=== PATIENT | male | born 1970 | race Caucasian/White ===

== ENCOUNTER → 2020-10-10 11:05 | Outpatient (BNVA) | payer OTHER, SELFPAY | PROVIDERS: Family Provider Nurse Practitioner Family; PCP Nurse Practitioner Family; Visit Provider Nurse Practitioner Family | DX: Z20.828 Contact with and (suspected) exposure to other viral communicable diseases (principal) | CPT/HCPCS: 87635 ==

== ENCOUNTER 2021-01-22 12:45 | Observation (INO) | payer OTHER, SELFPAY ==
[2021-01-22] VITALS (28 sets, daily range): BP systolic 81–136; BP diastolic 60–84; PULSE 70–94; RESP 16–26; TEMP 36.9; O2SAT 89–96
--- NOTE | 2021-01-22 11:25 | XACV_ITS ---
Ht: 188 cm Wt: 120 kg BSA: 2.54 m2 Gender: Male : 1970 Any Known Allergies: No known allergies Exam Priority: Routine Procedure(s): Procedure Description: Diagnostic procedure Procedure Description: Coronary Angiography Diagnostic Cath Status: Urgent Diagnostic Findings * LM has 0% stenosis. * LAD has 0% stenosis. * CX has 0% stenosis. * First Obtuse Marginal Branch Segment: Severe 100% stenosis, LAURENCE: 0 flow. * First Obtuse Marginal Branch Segment: Severe 100% stenosis, LAURENCE: 0 flow. * Proximal Right Coronary Artery: Severe 80% stenosis, LAURENCE: 3 flow. * dRCA: Moderate 50% stenosis, LAURENCE: 3 flow. * Coronary angiography shows right dominance. PCI Status: Urgent Interventional Findings * First Obtuse Marginal Branch Segment: 100% stenosis treated with MDT R SEBASTIEN 2.25X12 CODY. 0% residual stenosis, LAURENCE: 3 flow. * First Obtuse Marginal Branch Segment: 100% stenosis treated with AB MINI TREK 2.00X20 RX BALLOON and MDT R SEBASTIEN 2.25X26 CODY. 0% residual stenosis, LAURENCE: 3 flow. * Proximal Right Coronary Artery: 80% stenosis treated with MDT R SEBASTIEN 3.0X12 CODY and MDT NC EUPHORA RX [id number] BALLOON. 0% residual stenosis, LAURENCE: 3 flow. Conclusions 1. 50-year-old male presented with ST elevation OK showing inferolateral changes. He was immediately taken to the Studio Sales Associate he was noted to have incidental finding of proximal 80% RCA lesion which was treated with single drug-eluting stent postdilated with noncompliant balloon. Obtuse marginal 2 was the culprit vessel which is highly calcified and 100% occluded. After somewhat difficulty we were able to cross it. It was treated with 2 overlapping drug-eluting stents. Excellent angiographic result with LAURENCE-3 flow was achieved. Patient tolerated procedure well and transferred to [facility].. 2. There is severe coronary artery disease with one vessel disease. 3. First Obtuse Marginal Branch Segment was treated with Drug Eluting Stent. 4. First Obtuse Marginal Branch Segment was treated with Balloon and Drug Eluting Stent. 5. Proximal Right Coronary Artery was treated with Drug Eluting Stent and Balloon. Recommendations * 1-Return to inpatient for close monitoring and routine cath care 2-Risk factor modification for secondary prevention 3-Statin with LDL goal <70 mg/dl, aspirin 81 mg life-long 4-Patient was pre-loaded with 180mg of Brillinta. Continue Brillinta 90mg p.o. twice daily for at least one year. We will assess at the end of one year again to continue it further or not 5-Continue optimal medical management 6-Follow up with Dr. Chong in four weeks and with your PCP in one week. Diagnostic RX Recommendation: PCI w/o planned CABG Pressures Phase:Rest AO : 209 / 128 ( 132 ) @ 6:35:00 AM 124 / 104 ( 115 ) @ 6:40:00 AM 123 / 93 ( 107 ) @ 6:54:00 AM 115 / 80 ( 96 ) @ 7:10:00 AM / ( -27 ) @ 7:27:00 AM Clinical Evaluation EBL: 5mL-10mL Procedural Details Pre-Procedure Time Out. Identified patient by full name and date of as verbalized by the patient/guarantor. Does the consent match the physician's order: N/A Emergent; Informed Consent not obtained due to time critical life threat. Accurate & Complete Informed Consent: N/A Emergent; Informed Consent not obtained due to time critical life threat. Inpatient/Outpatient History & Physical on Chart: N/A Emergent; Informed Consent not obtained due to time critical life threat. If H&P is completed, is and addenduem needed: N/A Emergent; Informed Consent not obtained due to time critical life threat; If yes, is the addendum complete: N/A Emergent; Informed Consent not obtained due to time critical life threat. Visualize and Verify Site with Patient/Guarantor: N/A. Relevant Radiology Images available: N/A Emergent; Informed Consent not obtained due to time critical life threat. Pre-op teaching completed and patient verbalized understanding. The risks, benefits, and alternatives of sedation and/or procedure were discussed by physician. The patient agrees to continue. Procedure started. Correct patient, site and procedure confirmed by cath team. Current diagnosis: STEMI. PERRLA. Strong, equal hand investigation division captain bilaterally. Lungs clear x 5 lobes. IV Site on Arrival: 18 gauge in the right anticubital. Pre Procedural Pulses: bilateral dorsalis pedis was 2+. Pre Procedural Pulses: bilateral posterior tibial was 2+. Pre Procedural Pulses: bilateral radial was 2+. AP pads placed on patient. Oxygen started at 2liters/min via nasal canula. bilateral groins was prepped with chloroprep then draped in the usual sterile fashion. right radial was prepped with chloroprep then draped in the usual sterile fashion. Baseline sample Acquired. HR: 91 BPM. Equipment: 6F - Radial. Kiwi Manifold Kit Model BT 2000. Cardiac Cath Pack. Heparinized Saline (2 units/mL), 1000 mL bag. Physician scrubbed in. Immediate Pre-Procedure Time Out. Correct Patient: Yes; Correct Procedure: Yes; Correct Site: Yes; Correct Patient Position: Yes; Correct Supplies: Yes; Dried Flammable Prep: Yes; Blood Products Available: No;. Lidocaine 1% infiltrated to the right radial. Arterial access obtained. 6 botswanan JL 4 SH guide catheter was inserted over the wire. Multiple views taken of right coronary artery. Citra guidewire was advanced through the guide catheter to lesion in the prox RCA. Patient received the following at [facility]: 4000 units of heparain, 6mg Morphine, 324mg ASA, 300mg Plavix and 0.4mg Sublingual Nitro. Given by EMS in route to [facility]: 100mcg fentanyl, 1inch Nitropaste Left chest. Inflation Number : 1 A MDT R SEBASTIEN 3.0X12 CODY -Lot Number# [id number] was prepped and advanced across the Prox RCA. The stent was deployed at 14 BIANKA for 0:17 seconds. Stent expiration date: 10/14/2023. Results checked. Stent balloon out over wire. Inflation number : 2 A MDT NC EUPHORA RX [id number] BALLOON was prepped and advanced across the Prox RCA , then inflated to 14 BIANKA for 0:19 seconds. Inflation number: 3 The MDT NC EUPHORA RX 3.04I46TK BALLOON was reinflated across the Prox RCA, to 16 BIANKA for 0:17 seconds. Inflation number: 4 The MDT NC EUPHORA RX [id number] BALLOON was reinflated across the Prox RCA, to 12 BIANKA for 0:09 seconds. Balloon out. Results checked. Wire out. Guide catheter out. A 5 botswanan TIG catheter in over wire. Multiple views taken of left coronary artery. Catheter out. 6 botswanan XB 3.5 guide catheter was inserted over the wire. Citra guidewire was advanced through the guide catheter to lesion in the OM. Wire out. Runthrough guidewire was advanced through the guide catheter to lesion in the OM. Runthrough out. Inflation number : 1 A AB MINI TREK 2.00X20 RX BALLOON was prepped and advanced across the 1st Ob [place] , then inflated to 16 BIANKA for 0:14 seconds. Inflation number: 2 The AB MINI TREK 2.00X20 RX BALLOON was reinflated across the 1st Ob [place], to 16 BIANKA for 0:18 seconds. Inflation number: 3 The AB MINI TREK 2.00X20 RX BALLOON was reinflated across the 1st Ob [place], to 16 BIANKA for 0:13 seconds. Inflation number: 4 The AB MINI TREK 2.00X20 RX BALLOON was reinflated across the 1st Ob [place], to 16 BIANKA for 0:11 seconds. Inflation Number : 5 A MDT R SEBASTIEN 2.25X26 CODY -Lot Number# [id number] was prepped and advanced across the 1st Ob [place]. The stent was deployed at 14 BIANKA for 0:32 seconds. Stent expiration date: 10/29/21. Stent balloon out over wire. Wire out. Results checked. Runthrough reinserted. Inflation Number : 1 A MDT R SEBASTIEN 2.25X12 CODY -Lot Number# [id number] was prepped and advanced across the 1st Ob Marg1. The stent was deployed at 16 BIANKA for 0:19 seconds. Stent expiration date: 09/11/2022. Inflation number: 2 The stent balloon was then re-inflated across the 1st Ob Marg1 to 0 BIANKA for 0:14 seconds. Stent balloon out over wire. Guide catheter out. TR band placed. Hemostasis obtained. A TR Band was successful obtaining hemostatsis at the Right Radial artery insertion site. Post Procedure: Pulses reassessed and unchanged. PERRLA. Strong, equal hand investigation division captain bilaterally. No VTE prophylaxis required. Contrast type used: Omnipaque 300 mgI/mL, 500 mL bottle. Post-op diagnosis: Multivessel CAD. Complications: None. Estimated blood loss: 5mL-10mL. Medication's Wasted: Nitro = 49.6 mg. Medication's Wasted: Lidocaine 1% = 18 mL. Vital chart was stopped. Total IV fluids: 100 mL. Medication's Wasted: Heparin = 2000 untis. PCI Indication: STEMI. Procedure completed. Patient transferred by bed to 1st floor. Access Site Site: Right Radial artery Sheath Size: 6 Fr Hemostasis Method: TR Band Hemostasis Success: Successful Procedure Medications Start: 11:30 AM Stop: 11:30 AM Medication: Versed Amount: 1 mg Route: I.V. Start: 11:30 AM Stop: 11:30 AM Medication: Fentanyl Amount: 50 mcg Route: I.V. Start: 11:35 AM Stop: 11:35 AM Medication: Versed Amount: 1 mg Route: I.V. Start: 11:35 AM Stop: 11:35 AM Medication: Fentanyl Amount: 50 mcg Route: I.V. Start: 11:39 AM Stop: 11:39 AM Medication: Heparin Amount: 7000 units Route: I.V. Start: 11:46 AM Stop: 11:46 AM Medication: Nitrogylcerin Amount: 200 mcg Route: I.A. Start: 12:03 PM Stop: 12: PM Medication: Nitrogylcerin Amount: 200 mcg Route: I.A. Start: 12:20 PM Stop: 12: PM Medication: Heparin Amount: 2000 units Route: I.V. Start: 12: PM Stop: 12: PM Medication: Versed Amount: 2 mg Route: I.V. Start: 12: PM Stop: 12: PM Medication: Aggrastat 12.5 mg/250 mL Amount: 60 ml Route: I.V. bolus Start: 12: PM Stop: 12: PM Medication: Aggrastat 12.5 mg/250 mL Amount: 21.6 ml/hr Route: I.V. bolus Start: 12: PM Stop: 12: PM Medication: Plavix Amount: 300 mg Route: P.O. I, the attending physician, have reviewed and verified all procedure medications. Yes, all medications given per verbal order History/Risk Factors Hypertension: No Dyslipidemia: No Peripheral Arterial Disease (PAD): No Myocardial Infarction (OK): No Obesity: No Renal Disease: No Prior Interventions PCI: No CABG: No Valve Surgery: No Report Signatures Finalized by Maurice Chong MD on 02/04/2021 08:57 PM
--- NOTE | 2021-01-22 11:30 | ECG_ITS ---
[facility] Test Date: 2021-01-22 Pat Name: Estrada Puente Department: Room: Gender: Male Employee Adviser: : 1970 Requested By: Maurice Chong Order Number: [id number] Danilo MD: Andriy Strickland M.D. Measurements Intervals [place] Rate: 92 P: 52 RI: 157 QRS: 33 QRSD: 88 T: 71 QT: 357 QTc: 442 Interpretive Statements SINUS RHYTHM ST ELEVATION, CONSIDER INFERIOR INJURY [MARKED ST ELEVATION W/O NORMALLY INFLECTED T WAVE IN II/aVF] Some ST elevations in lead V5 V6, suggestive myocardial injury extending into the lateral wall . Some nonspecific ST changes in the high lateral leads ACUTE HI INTERPRETATION BASED ON A DEFAULT AGE OF 40 YEARS No previous ECG available for comparison Electronically Signed On 01-23-2021 0:05:24 CDT by Andriy Strickland M.D. [email or web address]
--- NOTE | 2021-01-22 12:16 | USCV_ITS ---
Estrada Puente Age: 50 Gender: M : 1970 Exam Date: 01/22/2021 14:36 Ordering Phys: Maurice Chong MD ([email or web address]) Technologist: Osmany Giordano [place] [facility] [place]: STEMI BP: 81 / 63 HR: 74 Rhythm: Sinus Technical Quality: Fair MEASUREMENTS (Male / Female) Normal Values 2D ECHO LV Diastolic Diameter PLAX 3.9 cm 4.2 - 5.9 / 3.9 - 5.3 cm LV Systolic Diameter PLAX 2.9 cm IVS Diastolic Thickness 1.2 cm 0.6 - 1.0 / 0.6 - 0.9 cm IVS Systolic Thickness 1.5 cm LVPW Diastolic Thickness 1.2 cm 0.6 - 1.0 / 0.6 - 0.9 cm LVPW Systolic Thickness 1.7 cm LVOT Diameter 2.0 cm LV Ejection Fraction 2D Teich 40.7 % LV Ejection Fraction MOD 2C 74.2 % LV Ejection Fraction 2C AL 74.6 % LA Diameter 3.5 cm LA Width 3.7 cm LA Height 4.0 cm RA Width 3.5 cm RA Height 5.0 cm Aorta at Sinotubular Diameter 3.0 cm M-MODE LV Diastolic Diameter MM 5.2 cm 4.2 - 5.9 / 3.9 - 5.3 cm LV Systolic Diameter MM 3.3 cm LV Ejection Fraction MM Teich 65.5 % IVS Diastolic Thickness MM 1.1 cm 0.6 - 1.0 / 0.6 - 0.9 cm IVS Systolic Thickness MM 1.3 cm LVPW Diastolic Thickness MM 1.0 cm 0.6 - 1.0 / 0.6 - 0.9 cm LVPW Systolic Thickness MM 1.7 cm RV Diastolic Diameter MM 1.6 cm Aortic Annulus Diameter 3.8 cm LA Ao Ratio MM 1.0 MV E Point Septal Separation 0.9 cm DOPPLER AV Peak Velocity 97.0 cm/s LVOT Peak Velocity 76.0 cm/s AV Area Cont Eq vti 2.9 cm squared AV Area Cont Eq pk 2.5 cm squared MV Area PHT 5.0 cm squared Mitral E to A Ratio 0.8 MV E' Velocity 34.0 cm/s Mitral E to MV E' Ratio 8.6 Mitral E to LV E' Lateral Ratio 8.5 Mitral E to LV E' Septal Ratio 8.9 TR Peak Velocity 100.0 cm/s TR Peak Gradient 4.0 mmHg TV Peak E Velocity 82.0 cm/s Right Atrial Pressure 3.0 mmHg Pulmonary Artery Systolic Pressu 7.0 mmHg PV Peak Velocity 75.0 cm/s FINDINGS Left Ventricle Normal left ventricular cavity size. Normal left ventricular systolic function. No regional wall motion abnormalities. Left ventricular ejection fraction is estimated at 65 %. Grade I/IV diastolic dysfunction (abnormal relaxation filling pattern), normal to mildly elevated filling pressures. Right Ventricle The right ventricle is normal in size and function. Right Atrium The right atrium is normal in size. Left Atrium The left atrium is normal in size. Mitral Valve Structurally normal mitral valve without significant stenosis or prolapse. There is no mitral regurgitation. Aortic Valve Mild aortic valve calcification. No aortic valve stenosis. No aortic valve regurgitation. Tricuspid Valve Structurally normal tricuspid valve without significant stenosis or regurgitation. Pulmonary artery systolic pressure is normal. Pulmonic Valve Structurally normal pulmonic valve without significant stenosis. There is no pulmonic regurgitation. Pericardium Normal pericardium without effusion. Aorta Normal ascending aorta dimension. CONCLUSIONS 1-Normal left ventricular cavity size. Normal left ventricular systolic function. No regional wall motion abnormalities. Left ventricular ejection fraction is estimated at 65 %. Grade I/IV diastolic dysfunction (abnormal relaxation filling pattern), normal to mildly elevated filling pressures. 2-No significant valve abnormalities. 3-There is no pericardial effusion. 4-Pulmonary artery systolic pressure is within normal limits. 5-Right atrial pressure is around 5 mm of mercury. 6-There are no prior echocardiogram studies to compare. Maurice Chong MD (Electronically Signed) Final Date: 22 January 2021 16:53 S
[2021-01-22] MEDS: sodium chloride 0.9% 1,000 ML 100 ML IV (12:30)
--- NOTE | 2021-01-22 12:30 | PM.HP ---
Providers/Chief Complaint Primary Care Provider: Cesar Rios Chief Complaint: STEMI History of Present Illness Estrada Puente is a 50 year old male past medical history significant for hypertension hyperlipidemia excessive tobacco abuse presented to [facility] emergency clinic with chest pain of 1 and half hour duration. I was called by the ER physician as inferolateral ST elevation was noted. Patient was immediately transferred to us through ambulance. He was taken directly to the Exhibits Curator. He was noted to have 100% occluded highly calcified diffusely diseased obtuse marginal branch treated with single drug-eluting stent. Proximal RCA was also noted to be significantly stenotic thought to be 80%. It was also treated with single drug-eluting stent. Excellent angiographic result with LAURENCE-3 flow was achieved. Patient was transferred back to [facility] in a stable condition. Medications/Allergies Home Medications Medication Instructions Recorded Confirmed Last Taken Type aspirin [Adult Low Dose Aspirin] 81 mg PO DAILY #90 tab 01/23/21 Unknown Rx atorvastatin 40 mg PO DAILY #30 tab 01/23/21 Unknown Rx clopidogrel 75 mg PO DAILY #90 tab 01/23/21 Unknown Rx lisinopril 2.5 mg PO DAILY #30 tab 01/23/21 Unknown Rx metoprolol succinate 12.5 mg PO DAILY #30 tab 01/23/21 Unknown Rx Allergies Allergy/AdvReac Type Severity Reaction Status Date / Time No Known Allergies Allergy Unverified 10/10/20 11:03 PFSH Acute PFSH: Medical History (Updated 01/23/21 @ 18:18 by Maurice Chong MD) HTN (hypertension) with goal to be determined Tobacco abuse Physical Exam Narrative: EXAM NARRATIVE: GENERAL: Patient is alert, awake and oriented x3. NECK: No jugular vein distension. HEENT: No cyanosis. No icterus. No pallor. HEART: Regular S1 and S2. No murmur, rub or gallop. LUNGS: Clear to auscultate bilaterally. ABDOMEN: Soft, nontender and nondistended. Positive bowel sounds. No guarding, rebound or tenderness. CENTRAL NERVOUS SYSTEM: Grossly nonfocal. EXTREMITIES: Lower extremities without edema bilaterally. Data : 01/23/21 04:43 01/23/21 04:43 A&P Assessment and plan (1) STEMI (ST elevation myocardial infarction): Status post drug-eluting stent to obtuse marginal and proximal RCA. Patient was loaded with 600 mg of Plavix. Continue aspirin statin add beta-renita and OVIDIO inhibitor. Echocardiogram to assess LV function in the morning. Further plan will be devised as per progress of the patient Status: Acute Qualifiers: Involved coronary artery: left circumflex coronary artery Qualified Code(s): I21.21 - ST elevation (STEMI) myocardial infarction involving left circumflex coronary artery (2) HTN (hypertension) with goal to be determined: Well-controlled. Continue to monitor Status: Acute (3) Tobacco abuse: Discussed with the patient and family in detail regarding quitting smoking he said he has quit today Status: Acute Attestations Medical Necessity Statement*: Patient is stable I am not expecting his stay to cross more than 2 midnights. 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
--- NOTE | 2021-01-22 14:43 | PC.NURSE ---
Telemetry Patient had a 5 sec pause on telemetry. US was at bedside performing Echo when event occurred. Stated that patient was changing position and moving head when the monitor alerted. VSS. Patient A&O, denies any palpitations. Dr. Chong notified. No new orders received. Nurse to continue to monitor.
--- NOTE | 2021-01-22 16:15 | PC.NURSE ---
Patient reports numbness and tingling to left side of face, neck and arm. Patient denies any visual deficits, all other neurological checks WNL. Dr. Chong notified. No new orders received. Nursing to continue to monitor.
[2021-01-22 17:13] LABS: Troponin T (5th) Once 664 ng/L (0-15)
--- NOTE | 2021-01-22 19:29 | PC.NURSE ---
received from cardiac chemical processing laborer at 1255 via w/c.report received.pt is alert and awake and oriented x 4.denies pain at present.sr on monitor.right wrist with tr band on and inflated.righthand is warm to touch and with brisk capillary refill.palpable radial pulse noted distal to tr band.no hematoma noted.instructed in activity restrictions s/p radial artery procedure...and instructed to notify staff for any bleeding,pain,numbness..or for any concerns at all.pt verb understanding of instructions
--- NOTE | 2021-01-22 19:33 | PC.NURSE ---
tr band slowly deflated and completely deflated at 1700.no hematoma noted.right hand remains warm to touch and with brisk capillary refill.palpable radial pulse noted.instructed in activity restrictions and to notify staff for any bleeding ,pain,numbness..or for any concerns at all.pt verb understanding of instructions
[2021-01-23] VITALS (9 sets, daily range): BP systolic 110–144; BP diastolic 78–92; PULSE 76–94; RESP 13–23; TEMP 36.7–37; O2SAT 93–97
[2021-01-23] MEDS: HYDROcodone-acetaminophen 5-325 mg Tablet 1 TAB PO (01:55)
[2021-01-23 05:43] LABS: Basophils % 0.6 %; Eosinophils # 0.2 10^3/uL (0.0-0.8); Eosinophils % 2.8 %; Hematocrit 44.4 % (42.0-52.0); Hemoglobin 14.9 g/dL (11.7-16.6); Lymphocytes # 2.6 10^3/uL (0.8-4.8); Lymphocytes % 36.6 %; Mean Corpuscular HGB Conc 33.6 g/dL (30.0-36.0); Mean Corpuscular Volume 89.3 fL (80-94); Monocytes # 0.6 10^3/uL (0.2-0.9); Neutrophils # 3.67 10^3/uL (1.8-7.7); Neutrophils % 51.7 %; Nucleated Red Blood Cells % 0 %; Platelet Count 269 10^3/cmm (130-400); Red Blood Count 4.97 10^6/uL (4.1-5.3); Red Cell Distribution Width 12.5 % (12.1-15.1); White Blood Count 7.1 10^3/uL (4.0-10.0)
[2021-01-23 06:09] LABS: Anion Gap 13.2 (5-19); Blood Urea Nitrogen 11 mg/dL (6-20); Calcium 8.1 mg/dL (8.5-10.5); Carbon Dioxide 24 mmol/L (22-29); Chloride 106 mmol/L (98-107); Glomerular Filtration Rate 102.3 mL/min (90-130); Glucose 89 mg/dL (65-115); Osmolality Calculated 287 mOsm/kg (285-295); Potassium 4.2 mmol/L (3.5-5.1); Sodium 139 mmol/L (136-145)
[2021-01-23] MEDS: clopidogrel 75 mg Tablet PO (09:27)
--- NOTE | 2021-01-23 11:03 | PC.CHAP ---
Pastoral Care Encounter/Spiritual Assessment Type of Contact [] Declined composite boat builder visit [] Patient/Family/Request visit [] Outpatient visit [] Follow-up visit [] Physician referral [] Code/Alert [x] Routine visit [] Staff referral [] Actively dying [] Patient sleeping [] Family support [] [] Out of room [] Palliative care [] [x] Receiving care in room [] Pre-surgical visit [] Trauma [] Long length of stay [] ICU visit [] Other: Relational/Emotional Strength [x] Patient feels connected with others/family/visitors/staff [] Distress [] Loneliness/isolation [] Abandonment Spirituality of Patient [x] Person of Gracy [] Attends Mormonism of their Gracy [x] Believes in Prayer [] Reads Bible or Rastafarian materials [] There are Spiritual issues to be addressed 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 Interventions [x] Prayer [x] Active listening [x] Non-anxious presence [x] Spiritual/emotional support [] Crisis/trauma care [x] Spiritual counseling [] Bereavement support [] Provided bereavement packet [] Provided Bible/devotional materials [] Provided toy/stuffed animal, coloring book to patient or family member [] Provided Communion [] Anointing/[place] [] Salvation [x] Completed spiritual assessment [] Other: Impact on Illness or Injury [] Angry [] Fearful [] Anxious [] Often cries [] Exhaustion [] Unable to work [] Unable to attend latter day [] Unable to walk/stand [] Unable to read [] Unable to drive [] Unable to eat/drink [] Unable to sleep [] Unable to be with family [] Patient intubated [] Other: Summary had two stents feels good and goiung home Time spent with patient 10 mins
--- NOTE | 2021-01-23 15:13 | PM.DCS ---
Discharge Providers Date of Admission: 01/22/21 12:45 Date of Discharge: January 23, 2021 Attending Provider at Admission: Maurice Chong MD Attending Provider at Discharge: Maurice Chong MD Reason for Visit Reason for Visit: STEMI Hospital Course Hospital Course 50-year-old male past medical history significant for hypertension hyperlipidemia excessive tobacco abuse for ST elevation [place] underwent emergent left heart cath, please marginal 1 was appeared to be culprit treated with drug-eluting stent. Incidental finding of proximal RCA for significant lesion also was treated with single drug-eluting stent. Echocardiogram showed normal ejection fraction. Over. Next 24 hours patient remained stable. His medicine were optimized. Today he is walking around without any difficulty and would like to go home. Right wrist appeared to be good no bruising no hematoma. He will be discharged today. Patient has been advised to continue quitting smoking. We will see him back in 7 days. Physical Exam Narrative: EXAM NARRATIVE: GENERAL: Patient is alert, awake and oriented x3. NECK: No jugular vein distension. HEENT: No cyanosis. No icterus. No pallor. HEART: Regular S1 and S2. No murmur, rub or gallop. LUNGS: Clear to auscultate bilaterally. ABDOMEN: Soft, nontender and nondistended. Positive bowel sounds. No guarding, rebound or tenderness. CENTRAL NERVOUS SYSTEM: Grossly nonfocal. EXTREMITIES: Lower extremities without edema bilaterally. 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 Routin e Exams 01/22/21 11:25 Taken Labs from last 24 hours 01/23/21 01/23/21 01/22/21 04:43 04:43 16:03 WBC 7.1 RBC 4.97 Hgb 14.9 Hct 44.4 MCV 89.3 MCH 30.0 MCHC 33.6 RDW 12.5 Plt Count 269 MPV 10.0 Neut % (Auto) 51.7 Lymph % (Auto) 36.6 [place] % (Auto) 8.0 Eos % (Auto) 2.8 Baso % (Auto) 0.6 Neut # (Auto) 3.67 Lymph # (Auto) 2.6 [place] # (Auto) 0.6 Eos # (Auto) 0.2 Baso # (Auto) 0.0 Nucleated RBC % (a uto) 0 Nucleated RBCs # 0.0 Sodium 139 Potassium 4.2 Chloride 106 Carbon Dioxide 24 Anion Gap 13.2 BUN 11 Creatinine 0.8 GFR Calculation 102.3 Glucose 89 Calculated Osmolal ity 287 Calcium 8.1 L Troponin T Gen 5 n g/L 664 H* Vitals: Last Vital Signs Temp 98.0 F 01/23/21 07:41 Pulse 85 01/23/21 11:08 Resp 16 01/23/21 11:08 BP 144/78 01/23/21 11:08 Pulse Ox 93 01/23/21 11:08 Discharge Plan Discharge Patient Disposition: Home Condition: Stable Prescriptions: New clopidogrel 75 mg Tablet 75 mg PO DAILY Qty: 90 RF: 3 Adult Low Dose Aspirin 81 mg tablet,delayed release (DR/EC) 81 mg PO DAILY Qty: 90 RF: 4 metoprolol succinate 25 mg tablet extended release 24 hr 12.5 mg PO DAILY Qty: 30 RF: 4 atorvastatin 40 mg tablet 40 mg PO DAILY Qty: 30 RF: 5 lisinopril 5 mg tablet 2.5 mg PO DAILY Qty: 30 RF: 5 Discharge Orders: Discharge Order (Routine); Ordered 01/23/21 Ordered By: Maurice Chong Referrals: Maurice Chong MD [Physician] - 04/30/21 3:00 pm (You have a cardiology followup with Dr. Chong at [facility] on April 30 at 3:00pm) Sylvia Leach FNP [Nurse Practitioner] - 01/28/21 2:15 pm (You have a post procedure followup with BLADIMIR Harp at [facility] on January 28 at 2:15pm) Discharge Diet: Cardiac Discharge Activity: Increase activity as tolerated Patient Instructions: Metoprolol (By mouth), Lisinopril (By mouth), Aspirin (By mouth), Atorvastatin (By mouth), Clopidogrel (By mouth), Left Heart Catheterization (DC), Coronary Angioplasty (DC), Opioid Safety Activity Restrictions/Additional Instructions: Follow-up with Sylvia Leach in 7 days cardiology nurse practitioner, follow-up with Dr. Chong in 3 months. Do not stop clopidogrel and aspirin for at least 2 years. Discharge Attestations Time Spent in Discharge Care*: greater than 30 min Specific Discharge Activities: educating patient and educating and/or supporting family/caregiver Time Spent in Smoking Cessation: 3 to 10 minutes Quality Metrics Clinical Quality Measures During this hospital stay, did patient experience: None Coding Level of Care Code New Pt Acute Chg FW DC note Patient Type New History Comprehensive Exam Comprehensive Medical Decision Making Moderate Complexity
== END 2021-01-23 16:30 | disposition home or self-care (01) ==
LOC: CSU 13:16
PROVIDERS: Admitting Provider Internal Medicine Cardiovascular Disease; Visit Provider Internal Medicine Cardiovascular Disease
DX: I21.21 ST elevation (STEMI) myocardial infarction involving left circumflex coronary artery (principal); I10 Essential (primary) hypertension; F17.210 Nicotine dependence, cigarettes, uncomplicated
CPT/HCPCS: 36415; 80048; 84484; 85025; 93005; 93306; 93454; C1725; C1769; C1874; C1887; C1894; C9601; C9606; G0378; J1644; J2250; J3010; J3246; J3490; J7030; Q9967

== ENCOUNTER 2021-01-26 12:09 | Observation (INO) | payer OTHER, SELFPAY ==
[2021-01-26] VITALS (14 sets, daily range): BP systolic 110–155; BP diastolic 72–98; PULSE 75–92; RESP 15–25; TEMP 36.6–36.7; O2SAT 21–96; BMI 32.2
--- NOTE | 2021-01-26 12:29 | XRR_ITS ---
PROCEDURE INFORMATION: Exam: XR Chest Exam date and time: 01/26/2021 12:31 PM Age: 50 years old Clinical indication: Chest pain TECHNIQUE: Imaging protocol: XR of the chest. Views: 1 view. COMPARISON: No relevant prior studies available. FINDINGS: Lungs: There is subtle left-sided interstitial prominence compatible with fibrosis, bronchitis, viral pneumonitis or asymmetric mild interstitial edema. The lungs are hyperinflated compatible with COPD. There is no lobar consolidation. Pleural spaces: Unremarkable. No pleural effusion. No pneumothorax. Heart/Mediastinum: Unremarkable. No cardiomegaly. Bones/joints: No acute abnormality. XR/XR chest 1V portable [id number] IMPRESSION: There is subtle left-sided interstitial prominence compatible with fibrosis, bronchitis, viral pneumonitis or asymmetric mild interstitial edema.
--- NOTE | 2021-01-26 12:29 | ECG_ITS ---
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 Measurements Intervals [place] Rate: 90 P: 45 PA: 151 QRS: 10 QRSD: 89 T: 57 QT: 365 QTc: 448 Interpretive Statements SINUS RHYTHM Compared to ECG 01/22/2021 11:17:41 Myocardial infarct finding no longer present ST (T wave) deviation no longer present Electronically Signed On 01-28-2021 12:24:30 CDT by Magaly Torres M.D. [id number] f
--- NOTE | 2021-01-26 12:31 | ED_ITS ---
HPI - Chest Pain General: Chief Complaint: Chest Pain Stated Complaint: CHEST PAIN Time Seen by Provider: 01/26/21 12:19 History of Present Illness: HPI narrative: 50-year-old male comes in with chest pain at approximately 10:45 AM. Patient states he was at hinduism when he started to feel some tingling in his face neck and arms. He had a dull pain in the center of his chest. He rates it 7/10 at that time. EMS was called. He was given 4 aspirin in the ambulance and states that his chest pain went away. Patient had 3 stents placed here on 01/22/2021. His troponin last week was 664. He states after that he felt great. He has not had any chest pain until today. He quit smoking as of Wednesday though he does continue to chew tobacco. When he had the chest pain today he states he also felt short of breath. He states though that since he quit smoking he has been coughing more. He has been coughing yellow phlegm. He denies fever chills. No nausea or vomiting. No abdominal pain. No flank pain. He states he was having some swelling in his legs before he had the stents placed. He states his legs look and feel great. He does not have any history of any asthma, emphysema or COPD. He states at this time he is not having any chest pain. 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) Onset (ago): hour(s) (This started at 10:45 AM.) Timing of current episode: now resolved Prior episodes: Yes Onset: during rest Pain location: substernal Pain radiation: left arm, neck and jaw/teeth Severity: similar to previous episodes Pain scale (0-10): 7 Quality: dull Relieving factors: other (Patient was given 4 aspirin in the ambulance and he states he felt better after that.) Context: recent surgery (3 stents placed on 01/22/2021) Associated symptoms: Reports dyspnea; Deny abdominal pain, diaphoresis, fever(s), leg edema (Patient states his legs have been doing much better since he had the stents), nausea, palpitations, syncope or vomiting Treatment prior to arrival: aspirin Risk Factors: Coronary artery disease risk factors: smoking history Review of Systems Const: Denies: fever(s) or diaphoresis Eyes: Denies: change in vision ENMT: Denies: dry mouth Card: Reports: chest pain and dyspnea on exertion; Denies: palpitations, irregular heart rhythm, edema, swelling of feet/ankles, lightheadedness, syncope or leg pain with exertion Resp: Reports: dyspnea, productive cough (Yellow phlegm) and chest congestion; Denies: pain on inspiration or hemoptysis GI: Denies: abdominal pain, nausea, vomiting or heartburn : Denies: flank pain, difficulty urinating or dysuria Musc: Reports: neck pain; Denies: back pain, extremity pain or extremity swelling Neuro: Reports: other (He did have tingling in his left upper extremity); Denies: headache(s), weakness in extremities, lack of coordination, difficulty walking or Slurred speech present [facility] ED PFSH: Medical History HTN (hypertension) with goal to be determined Tobacco abuse Physical Exam Const: COMMON NORMALS: no acute distress, patient oriented x3, no limitations, healthy appearing, alert and well nourished GENERAL APPEARANCE: cooperative, comfortable, well kempt and well developed; not in distress, not anxious and not ill appearing NUTRITIONAL APPEARANCE: overweight ORIENTATION/CONSCIOUSNESS: Yes awake, Yes oriented to person, Yes oriented to place and Yes oriented to time HENMT: COMMON NORMALS: normocephalic and atraumatic HEAD & SCALP: normal to inspection, normocephalic and atraumatic MOUTH: Normal oral and palatal mucosa present THROAT: posterior oropharynx normal Eye: COMMON NORMALS: Equal, round and reactive pupils present, EOMs intact bilaterally, conjunctivae normal and no scleral icterus CONJUNCTIVA: Yes conjunctivae normal PUPIL: Yes Equal, round and reactive pupils present Neck/C-Spine: COMMON NORMALS: full ROM, no lymphadenopathy, supple, no meningeal signs and no JVD Cardio: COMMON NORMALS: no JVD, regular rate, regular rhythm, No murmurs present (Cardio), No rub (Cardio) and Peripheral pulses 2+ throughout RATE: regular rate RHYTHM: regular rhythm PERIPHERAL PULSES: Peripheral pulses 2+ throughout GI: COMMON NORMALS: Soft to palpation and non-tender INSPECTION: Yes normal to inspection PALPATION: Yes Soft to palpation : COMMON NORMALS: Yes no CVA tenderness BLADDER/KIDNEY EXAM: Yes no CVA tenderness Back/Pelvis: COMMON NORMALS: no CVA tenderness Neuro: COMMON NORMALS: patient oriented x3 SENSORIUM/ORIENTATION: Yes alert, Yes oriented to person, Yes oriented to place and Yes oriented to time MENINGEAL SIGNS: Yes no meningeal signs Psych: COMMON NORMALS: mental status grossly normal, Normal thought process present, cooperative, normal affect and speech normal APPEARANCE: Yes grossly normal and Yes well kempt ATTITUDE: Yes calm and Yes engaged ACTIVITY/MOTOR BEHAVIOR: Yes appropriate eye contact SPEECH: Yes normal speech THOUGHT PROCESS: Normal thought process present Course Vital Signs: Vital signs: Vital Signs Temperature 98.0 F 01/26/21 18:00 Pulse Rate 87 01/26/21 16:20 Respiratory Rate 18 01/26/21 16:14 Blood Pressure 124/87 01/26/21 15:31 Pulse Oximetry 96 01/26/21 16:14 MDM - Chest Pain Lab Data: Labs: Lab Results 01/26/21 01/26/21 01/26/21 Range/Units 11:30 11:30 11:30 WBC 9.2 (4.0-10.0) 10^3/ uL RBC 5.45 H (4.1-5.3) 10^6/u L Hgb 16.3 (11.7-16.6) g/dL Hct 48.0 (42.0-52.0) % MCV 88.1 (80-94) fL MCH 29.9 (28.0-34.0) pg MCHC 34.0 (30.0-36.0) g/dL RDW 12.5 (12.1-15.1) % Plt Count 350 (130-400) 10^3/c mm MPV 9.8 (7.4-10.4) fL Neut % (Auto) 57.8 % Lymph % (Auto) 30.7 % [place] % (Auto) 8.3 % Eos % (Auto) 2.2 % Baso % (Auto) 0.5 % Neut # (Auto) 5.33 (1.8-7.7) 10^3/u L Lymph # (Auto) 2.8 (0.8-4.8) 10^3/u L [place] # (Auto) 0.8 (0.2-0.9) 10^3/u L Eos # (Auto) 0.2 (0.0-0.8) 10^3/u L Baso # (Auto) 0.1 (0.0-0.1) 10^3/u L Nucleated RBC % (a uto) 0 % Nucleated RBCs # 0.0 /100WBC PT 13.70 (12.1-14.9) SECO NDS INR 1.02 (0.8-1.2) APTT 32.9 (23.9-36.7) SECO NDS Sodium 134 L (136-145) mmol/L Potassium 4.4 (3.5-5.1) mmol/L Chloride 100 (98-107) mmol/L Carbon Dioxide 24 (22-29) mmol/L Anion Gap 14.4 (5-19) BUN 13 (6-20) mg/dL Creatinine 0.8 (0.7-1.2) mg/dL GFR Calculation 102.3 (90-130) mL/min Glucose 94 (65-115) mg/dL Calculated Osmolal ity 278 L (285-295) mOsm/k g Calcium 9.0 (8.5-10.5) mg/dL Total Bilirubin 0.5 (0.15-1.2) mg/dL AST 29 (0-40) U/L ALT 49 H (0-41) U/L Alkaline Phosphata se 98 (40-130) IU/L Troponin T Baselin e (0-15) ng/L Troponin T 120 Min herman (0-15) ng/L Delta Troponin T (0-10) ABS# NT-Pro-B Natriuret Pep 101 (0-125) pg/mL Total Protein 7.2 (6.6-8.7) g/dL Albumin 4.7 (3.5-5.2) g/dL Globulin 2.5 (1.3-4.6) g/dL 01/26/21 01/26/21 Range/Units 11:30 13:05 WBC (4.0-10.0) 10^3/ uL RBC (4.1-5.3) 10^6/u L Hgb (11.7-16.6) g/dL Hct (42.0-52.0) % MCV (80-94) fL MCH (28.0-34.0) pg MCHC (30.0-36.0) g/dL RDW (12.1-15.1) % Plt Count (130-400) 10^3/c mm MPV (7.4-10.4) fL Neut % (Auto) % Lymph % (Auto) % [place] % (Auto) % Eos % (Auto) % Baso % (Auto) % Neut # (Auto) (1.8-7.7) 10^3/u L Lymph # (Auto) (0.8-4.8) 10^3/u L [place] # (Auto) (0.2-0.9) 10^3/u L Eos # (Auto) (0.0-0.8) 10^3/u L Baso # (Auto) (0.0-0.1) 10^3/u L Nucleated RBC % (a uto) % Nucleated RBCs # /100WBC PT (12.1-14.9) SECO NDS INR (0.8-1.2) APTT (23.9-36.7) SECO NDS Sodium (136-145) mmol/L Potassium (3.5-5.1) mmol/L Chloride (98-107) mmol/L Carbon Dioxide (22-29) mmol/L Anion Gap (5-19) BUN (6-20) mg/dL Creatinine (0.7-1.2) mg/dL GFR Calculation (90-130) mL/min Glucose (65-115) mg/dL Calculated Osmolal ity (285-295) mOsm/k g Calcium (8.5-10.5) mg/dL Total Bilirubin (0.15-1.2) mg/dL AST (0-40) U/L ALT (0-41) U/L Alkaline Phosphata se (40-130) IU/L Troponin T Baselin e 645 H* (0-15) ng/L Troponin T 120 Min herman 682.4 H (0-15) ng/L Delta Troponin T 37.4 H* (0-10) ABS# NT-Pro-B Natriuret Pep (0-125) pg/mL Total Protein (6.6-8.7) g/dL Albumin (3.5-5.2) g/dL Globulin (1.3-4.6) g/dL Discharge Plan Discharge Patient Disposition: Admitted As Inpatient Admit Provider: Rebel Valencia Clinical Impression: Chest pain Qualifiers: Chest pain type: other chest pain Qualified Code(s): R07.89 - Other chest pain Condition: Stable Coding Level of Care Code ED Outsole Scheduler for Chg Fwd Exam Comprehensive
[2021-01-26 12:54] LABS: Basophils # 0.1 10^3/uL (0.0-0.1); Basophils % 0.5 %; Eosinophils # 0.2 10^3/uL (0.0-0.8); Eosinophils % 2.2 %; Hemoglobin 16.3 g/dL (11.7-16.6); Lymphocytes # 2.8 10^3/uL (0.8-4.8); Lymphocytes % 30.7 %; Mean Corpuscular Hemoglobin 29.9 pg (28.0-34.0); Mean Corpuscular Volume 88.1 fL (80-94); Mean Platelet Volume 9.8 fL (7.4-10.4); Monocytes # 0.8 10^3/uL (0.2-0.9); Monocytes % 8.3 %; Neutrophils # 5.33 10^3/uL (1.8-7.7); Neutrophils % 57.8 %; Nucleated Red Blood Cells % 0 %; Platelet Count 350 10^3/cmm (130-400); Red Blood Count 5.45 10^6/uL (4.1-5.3); Red Cell Distribution Width 12.5 % (12.1-15.1); White Blood Count 9.2 10^3/uL (4.0-10.0)
[2021-01-26 12:58] LABS: INR 1.02 (0.8-1.2)
[2021-01-26 12:59] LABS: Partial Thromboplastin Time 32.9 SECONDS (23.9-36.7)
[2021-01-26 13:28] LABS: Troponin(5th) Baseline 645 ng/L (0-15)
[2021-01-26 13:32] LABS: Alanine Aminotransferase 49 U/L (0-41); Albumin Level 4.7 g/dL (3.5-5.2); Alkaline Phosphatase 98 IU/L (40-130); Anion Gap 14.4 (5-19); Aspartate Amino Transferase 29 U/L (0-40); Blood Urea Nitrogen 13 mg/dL (6-20); Carbon Dioxide 24 mmol/L (22-29); Chloride 100 mmol/L (98-107); Globulin 2.5 g/dL (1.3-4.6); Glomerular Filtration Rate 102.3 mL/min (90-130); Glucose 94 mg/dL (65-115); NT Pro B Type Natriuretic Pept 101 pg/mL (0-125); Osmolality Calculated 278 mOsm/kg (285-295); Potassium 4.4 mmol/L (3.5-5.1); Sodium 134 mmol/L (136-145); Total Bilirubin 0.5 mg/dL (0.15-1.2); Total Protein 7.2 g/dL (6.6-8.7)
[2021-01-26 13:36] LABS: Troponin 5 2HR 682.4 ng/L (0-15); Troponin 5 2HR Delta 37.4 ABS# (0-10)
--- NOTE | 2021-01-26 14:29 | ECG_ITS ---
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 Measurements Intervals [place] Rate: 78 P: 29 MT: 151 QRS: 13 QRSD: 89 T: 46 QT: 384 QTc: 438 Interpretive Statements SINUS RHYTHM Compared to ECG 01/26/2021 12:14:48 No significant changes Electronically Signed On 01-28-2021 12:41:11 CDT by Magaly Torres M.D. [id number]
--- NOTE | 2021-01-26 15:11 | PC.NURSE ---
pt report called to Nicolle VILLARREAL in SBAR format.
[2021-01-26] MEDS: enoxaparin 120 mg/0.8 mL Syringe SUBCUT (15:34)
--- NOTE | 2021-01-26 15:38 | P.HP_ITS ---
Providers/Chief Complaint Admitting Physician: Rebel Valencia MD Chief Complaint: CHEST PAIN History of Present Illness Estrada Puente is a 50 year old male with past medical history of hypertension, chronic tobacco abuse, recent STEMI, s/p, OM and RCA stent (obtuse marginal 1 culprit :Incidental finding of proximal RCA for significant lesion also was treated with single drug-eluting stent) Came in today with chief complaint of left-sided facial tingling as well as central chest pain, 5-6 in severity, with some feeling of choking in neck, started this morning, apart from the tingling and central chest pain, he denies any palpitation, diaphoresis, nausea, vomiting, dizziness, weakness in any body part, blurred vision, lightheadedness, fever, sick contact. He quit smoking this Wednesday, and post that, he is having coughing bouts. Upon arrival in the ER he was worked up for above-mentioned complaint: Pertinent imaging study; X-ray chest: No acute infiltrates, no pneumothorax no effusion. EKG: No acute ST-T wave changes. Pertinent labs: Troponin T baseline: 645, 2-hour troponin T: 682, 2-hour delta: 37, 6-hour troponin T: 651, 6-hour delta: 6.8, proBNP:101, ECA Medications: Aspirin 325 MG p.o. once, Lovenox: 120 MG SC *1 dose, Review of Systems Const: Denies: fever(s), chills, body aches, change in appetite or diaphoresis Card: Denies: palpitations, edema, swelling of feet/ankles, dyspnea on exertion, orthopnea or leg pain with exertion Resp: Denies: dyspnea or wheezing GI: Denies: abdominal pain, diarrhea or constipation : Denies: flank pain or difficulty urinating Musc: Denies: back pain, extremity pain or extremity swelling Neuro: Denies: headache(s), difficulty walking or confusion Medications/Allergies Home Medications Medication Instructions Recorded Confirmed Last Taken Type aspirin [Adult Low Dose Aspirin] 81 mg PO DAILY #90 tab 01/23/21 01/26/21 01/26/21 Rx atorvastatin 40 mg PO DAILY #30 tab 01/23/21 01/26/21 01/25/21 Rx clopidogrel 75 mg PO DAILY #90 tab 01/23/21 01/26/21 01/26/21 Rx lisinopril 2.5 mg PO DAILY #30 tab 01/23/21 01/26/21 01/26/21 Rx metoprolol succinate 12.5 mg PO DAILY #30 tab 01/23/21 01/26/21 01/26/21 Rx Allergies Allergy/AdvReac Type Severity Reaction Status Date / Time No Known Allergies Allergy Unverified 01/26/21 12:16 PFSH Acute PFSH: Medical History HTN (hypertension) with goal to be determined Tobacco abuse Vitals/I&O/Wt Last Vital Signs Temp 98.0 F 01/26/21 15:31 Pulse 81 01/26/21 15:31 Resp 25 H 01/26/21 15:31 BP 124/87 01/26/21 15:31 Pulse Ox 93 01/26/21 15:31 Weight last 48 hrs Weight 120.202 kg Physical Exam Const: COMMON NORMALS: patient oriented x3 HENMT: COMMON NORMALS: normocephalic and atraumatic HEAD & SCALP: normocephalic and atraumatic Chest: CHEST: Yes Symmetrical chest wall rise Resp: COMMON NORMALS: clear to auscultation bilaterally AUSCULTATION: clear to auscultation bilaterally Cardio: COMMON NORMALS: regular rate, regular rhythm, S1 normal heart sound present, S2 normal heart sound present, No gallops present (Cardio), No murmurs present (Cardio), No rub (Cardio) and Peripheral pulses 2+ throughout RATE: regular rate RHYTHM: regular rhythm HEART SOUNDS: S1 normal heart sound present and S2 normal heart sound present PERIPHERAL PULSES: Peripheral pulses 2+ throughout GI: COMMON NORMALS: Normal to inspection, nondistended, normoactive bowel sounds present, Soft to palpation, non-tender, No hepatosplenomegaly present and no masses AUSCULTATION: Yes normoactive bowel sounds PALPATION: Yes Soft to palpation and Yes No hepatosplenomegaly present RECTAL EXAM: Yes deferred Extremity: COMMON NORMALS: no clubbing, cyanosis or edema and no pedal edema Neuro: COMMON NORMALS: patient oriented x3 Data : 01/26/21 11:30 01/26/21 11:30 A&P Assessment and plan (1) Chest pain: Patient came in with typical cardiac chest pain. Aspirin 325 mg p.o. one-time dose Aspirin 81 mg p.o. Lipitor 40 mg p.o. daily Lisinopril 2.5 mg p.o. daily Plavix 75 mg p.o. daily Lovenox 120 mg q12 h daily Imdur 30 mg po daily Metoprolol succinate 12.5 mg po daily 2D echo: N.p.o. Appreciate cardiology consult Status: Acute (2) Elevated troponin: Type I versus type II AK. Plan as 1 Status: Acute (3) CAD (coronary artery disease): History of recent STEMI. S/p stent in OM1 and RCA. Status: Acute (4) HTN (hypertension) with goal to be determined: Status: Acute (5) Hyperlipidemia: Status: Acute (6) Acute bronchitis: Status: Acute Additional A&P Information CODE STATUS: Full code DVT prophylax: Lovenox Disposition :Home Attestations Medical Necessity Statement*: Patient needs to be in hospital for management of chest pain.Anticipated length of stay less than 2 midnights. Coding Level of Care Code Acute Toe Former [employer] for Rola Rios Diagnoses Chest pain R07.9 Elevated troponin R77.8 CAD (coronary artery disease) I25.10 HTN (hypertension) with goal to be determined I10 Hyperlipidemia E78.5 Acute bronchitis J20.9
[2021-01-26] MEDS: isosorbide mononitrate ER 30 mg Tablet PO (16:01)
[2021-01-26] MEDS: nicotine 14 mg Patch 1 PATCH TRANSDERMA (16:01)
--- NOTE | 2021-01-26 17:03 | PC.NURSE ---
received in to room 112-1 from er via stretcher.report received.pt is alert and oriented x 4.sr on monitor.bp stable.oriented to room environment.pt reports chest pain 4-5/10.substernal through to back.no sob or diaphoresis.ekg obtained.lovenox and imdur given as ordered. chest pain resolved shortly after imdur given.instructed to notify staff for any further chest pain,dizziness,or for any concerns at all.pt verb understanding of instructions.
[2021-01-26 18:00] LABS: Troponin 5 6HR Delta 6.8 ng/L (0-12)
[2021-01-26] MEDS: ondansetron 2 mg/ML SDV 2 mL 4 MG IVP (18:16)
[2021-01-26] MEDS: acetaminophen 325 mg Tablet 650 MG PO (18:18)
[2021-01-26] MEDS: aspirin 325 mg Tablet PO (18:18)
[2021-01-26 18:21] LABS: Troponin 5 6HR 651.8 ng/L (0-15)
--- NOTE | 2021-01-26 18:29 | ECG_ITS ---
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 Measurements Intervals [place] Rate: 93 P: 27 [place]: 157 QRS: -15 QRSD: 89 T: 28 QT: 360 QTc: 448 Interpretive Statements SINUS RHYTHM Compared to ECG 01/26/2021 16:00:56 No significant changes Electronically Signed On 01-28-2021 12:40:08 CDT by Magaly Torres M.D. [id number]
--- NOTE | 2021-01-26 19:18 | PM.CONSULT ---
Providers/Reason For Consult Consulting Physican/Specialty*: Dr. Torres, cardiology Reason for Consult*: Chest pain elevated troponin Attending Physician: Rebel Valencia MD History of Present Illness History of Present Illness Estrada Puente is a 50 year old male with past medical history of hypertension, hyperlipidemia, tobacco abuse who presented on 22 January 2021 to [facility] with chest pain. He was noted to have inferolateral ST elevation and was transferred to [facility] for further management. He was taken to the [employer] Machine [employer] and found to have 100% occluded highly calcified diffusely diseased obtuse marginal that was treated with single drug-eluting stent. Proximal RCA had 80% stenosis and underwent drug-eluting stent placement as well. He was discharged home on 23 January 2021 in a stable state on aspirin, Plavix, metoprolol succinate 12.5, atorvastatin 40 mg and lisinopril 2.5 mg. He was at [facility] today when he developed SOB and retrosternal chest pain similar to previous pain though less intense. His BP at the time was systolically in 180's. He called ambulance and came to the ER. Blood pressure on arrival 155/92 mmHg. EKG showed sinus rhythm, possible old inferior ME. No significant ST-T wave changes on subsequent EKG's. No fever, URI/UTI like symptoms. He has not been smoking lately. He complains of productive cough. Review of Systems Const: Denies: fever(s) or diaphoresis Eyes: Denies: change in vision ENMT: Denies: dry mouth Card: Reports: chest pain and dyspnea on exertion; Denies: palpitations, irregular heart rhythm, edema, swelling of feet/ankles, lightheadedness, syncope or leg pain with exertion Resp: Reports: dyspnea, productive cough (Yellow phlegm) and chest congestion; Denies: pain on inspiration or hemoptysis GI: Denies: abdominal pain, nausea, vomiting or heartburn : Denies: flank pain, difficulty urinating or dysuria Musc: Reports: neck pain; Denies: back pain, extremity pain or extremity swelling Neuro: Reports: other (He did have tingling in his left upper extremity); Denies: headache(s), weakness in extremities, lack of coordination, difficulty walking or Slurred speech present Psych: Denies: anxiety or depression Rafy/Lymph: Denies: petechiae or purpura Meds/Allergies Home Medications and Allergies Home Medications Medication Instructions Recorded Confirmed Last Taken Type aspirin [Adult Low Dose Aspirin] 81 mg PO DAILY #90 tab 01/23/21 01/26/21 01/26/21 Rx atorvastatin 40 mg PO DAILY #30 tab 01/23/21 01/26/21 01/25/21 Rx clopidogrel 75 mg PO DAILY #90 tab 01/23/21 01/26/21 01/26/21 Rx lisinopril 2.5 mg PO DAILY #30 tab 01/23/21 01/26/21 01/26/21 Rx metoprolol succinate 12.5 mg PO DAILY #30 tab 01/23/21 01/26/21 01/26/21 Rx Allergies Allergy/AdvReac Type Severity Reaction Status Date / Time No Known Allergies Allergy Unverified 01/26/21 12:16 Current Medications Current Medications Generic Name Dose Route Start Last Admin Trade Name Freq PRN Reason Stop Dose Admin Acetaminophen 650 mg 01/26/21 15:27 01/26/21 18:18 Acetaminophen 325 Mg Tablet PO 650 mg Q6H PRN Administration Mild/Mod Pain Or Temp >/= 101 Isosorbide Mononitrate 30 mg 01/26/21 15:40 01/26/21 16:01 Isosorbide Mononitrate Er 30 Mg Tablet PO 30 mg DAILY RAVI Administration Nicotine 1 patch 01/26/21 15:40 01/26/21 16:01 Nicotine 14 Mg Patch TRANSDERMA 1 patch DAILY RAVI Administration Ondansetron HCl 4 mg 01/26/21 15:27 01/26/21 18:16 Ondansetron 2 Mg/Ml Sdv 2 Ml IVP 4 mg Q8H PRN Administration vomiting, or N/V if npo PFSH Acute PFSH: Medical History (Updated 01/26/21 @ 20:43 by Magaly Torres MD) HTN (hypertension) with goal to be determined Tobacco abuse Surgical History (Updated 01/26/21 @ 20:39 by Magaly Torres MD) Stented coronary artery Vitals/I&O/Wt Last Vital Signs Temp 98.0 F 01/26/21 18:00 Pulse 87 01/26/21 16:20 Resp 18 01/26/21 16:14 BP 122/81 01/26/21 16:00 Pulse Ox 96 01/26/21 16:14 01/26/21 01/26/21 01/26/21 06:59 14:59 22:59 Intake Total 240 / 240 Balance 240 / 240 Weight last 48 hrs Weight 265 lb Physical Exam Narrative: EXAM NARRATIVE: GENERAL: obese man in no acute distress HEENT: Extraocular movement intact. Pupils equal round reactive to light. No pallor or icterus. NECK: central trachea, No JVD. No carotid bruit. CARDIOVASCULAR SYSTEM: S1-S2 regular. No S3 or S4 present. No murmur rubs or gallops. RESPIRATORY SYSTEM: Chest clear to auscultation. No wheezes or rhonchi. intermittent crackles No use of accessory muscles. ABDOMEN: Soft, nontender and nondistended. Normal bowel sounds present. EXTREMITIES: No cyanosis or clubbing. No edema. No signs of chronic venous insufficiency. WATER RESOURCE MANAGER: Patient is alert oriented ?3. No focal neurological deficits. SKIN: Normal turgor and temperature. No breakdown, rash or nail changes noted. PSYCH: Normal insight and judgment. Data Labs: Other Labs: Troponin T on 22 January of 664. Baseline troponin T today 645 which increased at 2 hours to 683 and at 6 hours of 651.8. ALT 49. Sodium of 134. Imaging^: CXR: Radiologist's impression: IMPRESSION: There is subtle left-sided interstitial prominence compatible with fibrosis, bronchitis, viral pneumonitis or asymmetric mild interstitial edema. Other Data: Attestation for Other Data: I personally reviewed and interpreted the following: Other data: Echocardiogram 22 January 2021 CONCLUSIONS 1-Normal left ventricular cavity size. Normal left ventricular systolic function. No regional wall motion abnormalities. Left ventricular ejection fraction is estimated at 65 %. Grade I/IV diastolic dysfunction (abnormal relaxation filling pattern), normal to mildly elevated filling pressures. 2-No significant valve abnormalities. 3-There is no pericardial effusion. 4-Pulmonary artery systolic pressure is within normal limits. 5-Right atrial pressure is around 5 mm of mercury. 6-There are no prior echocardiogram studies to compare. A&P Assessment and plan (1) Chest pain: Anginal CP, No EKG changes. started on imdur 30 mg daily. -complains of headache; will monitor. Status: Acute Qualifiers: Chest pain type: other chest pain Qualified Code(s): R07.89 - Other chest pain (2) Elevated troponin: CP with elevated troponin (flat on subsequent sets) -concern for NSTEMI; No EKG changes -f/u on echo and further changes based on that. Status: Acute (3) CAD in [place] artery: -continue DAPT, statin and metoprolol. Status: Acute (4) HTN (hypertension) with goal to be determined: Status: Acute (5) Hyperlipidemia: Status: Acute Qualifiers: Hyperlipidemia type: unspecified Qualified Code(s): E78.5 - Hyperlipidemia, unspecified Additional A&P Information Acute bronchitis Thank you for allowing me to participate in patient's care. Please feel free to call with questions or concerns. Coding Level of Care Code Acute Tab Machine Operator for [facility] Fwd Diagnoses Chest pain R07.89 Chest pain type: other chest pain Elevated troponin R77.8 CAD in [place] artery I25.10 HTN (hypertension) with goal to be determined I10 Hyperlipidemia E78.5 Hyperlipidemia type: unspecified
[2021-01-26] MEDS: FUROsemide 20 mg Tablet PO (21:53)
[2021-01-27] VITALS (14 sets, daily range): BP systolic 99–118; BP diastolic 54–79; PULSE 68–97; RESP 14–23; TEMP 36.4–36.8; O2SAT 91–98
[2021-01-27] MEDS: enoxaparin 120 mg/0.8 mL Syringe SUBCUT ×2 (03:15→17:07)
[2021-01-27 04:43] LABS: Basophils % 0.4 %; Eosinophils # 0.2 10^3/uL (0.0-0.8); Eosinophils % 2.4 %; Hematocrit 47.1 % (42.0-52.0); Hemoglobin 15.3 g/dL (11.7-16.6); Lymphocytes # 3.5 10^3/uL (0.8-4.8); Lymphocytes % 36.3 %; Mean Corpuscular HGB Conc 32.5 g/dL (30.0-36.0); Mean Corpuscular Hemoglobin 29.7 pg (28.0-34.0); Mean Corpuscular Volume 91.5 fL (80-94); Mean Platelet Volume 9.4 fL (7.4-10.4); Monocytes # 0.7 10^3/uL (0.2-0.9); Monocytes % 7.2 %; Neutrophils # 5.18 10^3/uL (1.8-7.7); Neutrophils % 53.2 %; Nucleated Red Blood Cells % 0 %; Platelet Count 334 10^3/cmm (130-400); Red Blood Count 5.15 10^6/uL (4.1-5.3); Red Cell Distribution Width 12.5 % (12.1-15.1); White Blood Count 9.7 10^3/uL (4.0-10.0)
[2021-01-27 05:00] LABS: Alanine Aminotransferase 41 U/L (0-41); Alkaline Phosphatase 83 IU/L (40-130); Aspartate Amino Transferase 26 U/L (0-40); Blood Urea Nitrogen 13 mg/dL (6-20); Calcium 8.3 mg/dL (8.5-10.5); Carbon Dioxide 29 mmol/L (22-29); Chloride 104 mmol/L (98-107); Globulin 2.7 g/dL (1.3-4.6); Glomerular Filtration Rate 89.3 mL/min (90-130); Glucose 100 mg/dL (65-115); Osmolality Calculated 290 mOsm/kg (285-295); Sodium 140 mmol/L (136-145); Total Bilirubin 0.6 mg/dL (0.15-1.2); Total Protein 6.7 g/dL (6.6-8.7)
--- NOTE | 2021-01-27 06:00 | ECG_ITS ---
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 Measurements Intervals [place] Rate: 74 P: 32 TN: 158 QRS: 16 QRSD: 86 T: 58 QT: 391 QTc: 435 Interpretive Statements SINUS RHYTHM Compared to ECG 01/26/2021 18:09:44 No significant changes Electronically Signed On 01-28-2021 12:37:08 CDT by Magaly Torres M.D. [id number]
[2021-01-27] MEDS: ipratropium-albuterol 3 mL Neb INHALATION (07:39)
[2021-01-27] MEDS: metoprolol succinate ER (24 HR) 25 mg Tablet 12.5 MG PO (09:15)
[2021-01-27] MEDS: atorvastatin 40 mg Tablet PO (09:15)
[2021-01-27] MEDS: clopidogrel 75 mg Tablet PO (09:15)
[2021-01-27] MEDS: isosorbide mononitrate ER 30 mg Tablet PO (09:15)
[2021-01-27] MEDS: aspirin 81 mg EC Tablet PO (09:15)
[2021-01-27] MEDS: azithromycin 250 mg Tablet PO (09:16)
[2021-01-27] MEDS: lisinopril 5 mg Tablet 2.5 MG PO (09:16)
[2021-01-27] MEDS: nicotine 14 mg Patch 1 PATCH TRANSDERMA (09:16)
--- NOTE | 2021-01-27 09:18 | PM.PN ---
Subjective Subjective: Interval history: Denies any chest pain no significant EKG changes. Blood pressure is stable Medications: Reviewed: Yes Vitals/I&O/Wt Last Vital Signs Temp 97.8 F 01/27/21 07:46 Pulse 88 01/27/21 08:00 Resp 17 01/27/21 08:00 BP 106/79 01/27/21 08:00 Pulse Ox 98 01/27/21 08:00 01/26/21 01/27/21 01/27/21 22:59 06:59 14:59 Intake Total 240 / 240 150 / 390 360 / 360 Output Total 600 / 600 Balance -360 / -360 150 / -210 360 / 360 Weight last 48 hrs Weight 265 lb Physical Exam Narrative: EXAM NARRATIVE: GENERAL: Patient is alert, awake and oriented x3. NECK: No jugular vein distension. HEENT: No cyanosis. No icterus. No pallor. HEART: Regular S1 and S2. No murmur, rub or gallop. LUNGS: Inspiratory expiratory rhonchi bilaterally. CENTRAL NERVOUS SYSTEM: Grossly nonfocal. EXTREMITIES: Data : 01/27/21 04:32 01/27/21 04:32 A&P Assessment and plan (1) Chest pain: Anginal CP, No EKG changes. started on imdur 30 mg daily. -complains of headache; will monitor. Status: Acute Qualifiers: Chest pain type: other chest pain Qualified Code(s): R07.89 - Other chest pain (2) Elevated troponin: Patient recently had myocardial infarction at that time only 1 troponin set was ordered that was around 600. It is possible that actual troponin was much higher and what we are seeing now is decline from the prior 4 days ago. I would like to monitor him for next [address] Torres has ordered stress echo. Will assess it. There is no EKG changes for now. I will continue current regimen including aspirin statin beta-renita and clopidogrel Status: Acute (3) CAD in [place] artery: Appear to be stable no more chest pain continue to monitor. Add isosorbide mononitrate to the regimen as during angiogram endothelial dysfunction leading to coronary spasm was of concern as well. Status: Acute (4) HTN (hypertension) with goal to be determined: Well-controlled. Continue to monitor Status: Acute (5) Hyperlipidemia: Patient is on statin. Status: Acute Qualifiers: Hyperlipidemia type: unspecified Qualified Code(s): E78.5 - Hyperlipidemia, unspecified (6) Acute bronchitis: Concern regarding bronchitis as addressed by medicine. Status: Acute Additional A&P Information Acute bronchitis Thank you for allowing me to participate in patient's care. Please feel free to call with questions or concerns. Attestations Medical Necessity Statement*: Patient require continuation hospitalization for next 24 hours. Coding Level of Care Code Acute Riveting Machine Operator Automatic for [facility] Fwd Diagnoses Chest pain R07.89 Chest pain type: other chest pain Elevated troponin R77.8 CAD in [place] artery I25.10 HTN (hypertension) with goal to be determined I10 Hyperlipidemia E78.5 Hyperlipidemia type: unspecified Acute bronchitis J20.9
[2021-01-27] MEDS: acetaminophen 325 mg Tablet 650 MG PO (10:02)
--- NOTE | 2021-01-27 11:38 | PC.CHAP ---
Pastoral Care Encounter/Spiritual Assessment Type of Contact [] Declined riding teacher visit [] Patient/Family/Request visit [] Outpatient visit [] Follow-up visit [] Physician referral [] Code/Alert [] Routine visit [] Staff referral [] Actively dying [] Patient sleeping [] Family support [] [] Out of room [] Palliative care [] [] Receiving care in room [] Pre-surgical visit [] Trauma [] Long length of stay [] ICU visit [] Other: Relational/Emotional Strength [] Patient feels connected with others/family/visitors/staff [] Distress [] Loneliness/isolation [] Abandonment Spirituality of Patient [x] Person of Gracy [x] Attends Religion of their Gracy [x] Believes in Prayer [] Reads Bible or Hoahaoism materials [] There are Spiritual issues to be addressed Relay Tester Interventions [x] Prayer [] Active listening [] Non-anxious presence [] Spiritual/emotional support [] Crisis/trauma care [] Spiritual counseling [] Bereavement support [] Provided bereavement packet [] Provided Bible/devotional materials [] Provided toy/stuffed animal, coloring book to patient or family member [] Provided Communion [] Anointing/[place] [] Salvation [] Completed spiritual assessment [] Other: Impact on Illness or Injury [] Angry [] Fearful [] Anxious [] Often cries [] Exhaustion [] Unable to work [] Unable to attend religious [] Unable to walk/stand [] Unable to read [] Unable to drive [] Unable to eat/drink [] Unable to sleep [] Unable to be with family [] Patient intubated [] Other: Summary Time spent with patient
--- NOTE | 2021-01-27 15:37 | PM.PN ---
Subjective Subjective: Interval history: Denies any chest pain except during bouts of coughing, reports chronic cough over several years related to smoking Medications: Reviewed: Yes Vitals/I&O/Wt Last Vital Signs Temp 98.2 F 01/27/21 14:34 Pulse 95 01/27/21 14:34 Resp 17 01/27/21 14:34 BP 118/67 01/27/21 14:34 Pulse Ox 91 01/27/21 14:34 01/27/21 01/27/21 01/27/21 06:59 14:59 22:59 Intake Total 150 / 390 600 / 600 Output Total 400 / 400 Balance 150 / -210 200 / 200 Weight last 48 hrs Weight 120.202 kg Physical Exam Narrative: EXAM NARRATIVE: GEN: Awake, alert and oriented, no acute distress CVS: S1S2 N RS: Wheezing to auscultation right axillary areas Abd: Soft, nt/nd , bs+ 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 Lipitor 40 mg p.o. daily Lisinopril 2.5 mg p.o. daily Plavix 75 mg p.o. daily Lovenox 120 mg q12 h daily to continue for now Imdur 30 mg po daily added with relief Metoprolol succinate 12.5 mg po daily 2D echo: pending Status: Acute Qualifiers: Chest pain type: unspecified Qualified Code(s): R07.9 - Chest pain, unspecified (2) Elevated troponin: 1 Status: Acute (3) CAD (coronary artery disease): History of recent STEMI. S/p stent in OM1 and RCA. Status: Acute Qualifiers: Coronary Disease-Associated Artery/Lesion type: [place] artery [place] vs. transplanted heart: [place] heart Associated angina: with stable angina Qualified Code(s): I25.118 - Atherosclerotic heart disease of [place] coronary artery with other forms of angina pectoris (4) HTN (hypertension) with goal to be determined: Status: Acute (5) Hyperlipidemia: Status: Acute Qualifiers: Hyperlipidemia type: unspecified Qualified Code(s): E78.5 - Hyperlipidemia, unspecified (6) Acute bronchitis: less likely acute bronchitis , more likely to be chronic bronchitis related to chronic smoking, chronic cough which he reports going back at least several months, noted wheezing on exam today and also reported wheezing past several months. Patient will need a pulmonary function test as outpatient. Currently getting treatment with DuoNeb as needed, will add albuterol inhaler at discharge. Follow-up with primary care provider for the same. Discontinue azithromycin. Status: Acute Additional A&P Information CODE STATUS: Full code DVT prophylax: Lovenox Disposition :Home Attestations Medical Necessity Statement*: Continue to monitor over next 24 hours per cardiology recommendations and pending echocardiogram. Coding Level of Care Code Acute Plate And Weld Inspector for Chg Fwd Diagnoses Chest pain R07.9 Chest pain type: unspecified Elevated troponin R77.8 CAD (coronary artery disease) I25.118 Coronary Disease-Associated Artery/Lesion type: [place] artery [place] vs. transplanted heart: [place] heart Associated angina: with stable angina HTN (hypertension) with goal to be determined I10 Hyperlipidemia E78.5 Hyperlipidemia type: unspecified Acute bronchitis J20.9
[2021-01-27] MEDS: nitroglycerin 0.4 mg sublingual Tablet SUBLINGUAL (16:29)
--- NOTE | 2021-01-27 17:45 | USCV_ITS ---
Estrada Puente Age: 50 Gender: M : 1970 Exam Date: 01/27/2021 05:57 Ordering Phys: Rebel Valencia MD Technologist: Jennifer Campo Exam Location: [facility] Indication: CHEST PAIN POST STEMI BP: 104 / 57 HR: 69 Rhythm: Sinus Technical Quality: Adequate MEASUREMENTS (Male / Female) Normal Values 2D ECHO LV Diastolic Diameter PLAX 4.5 cm 4.2 - 5.9 / 3.9 - 5.3 cm LV Systolic Diameter PLAX 3.1 cm LV Chamber Size 3.9 cm IVS Diastolic Thickness 1.1 cm 0.6 - 1.0 / 0.6 - 0.9 cm IVS Systolic Thickness 1.4 cm LVPW Diastolic Thickness 1.3 cm 0.6 - 1.0 / 0.6 - 0.9 cm LVPW Systolic Thickness 1.6 cm RV Chamber Size 3.0 cm LVOT Diameter 2.0 cm LV Ejection Fraction 2D Teich 59.1 % LV Ejection Fraction MOD 2C 48.6 % LV Ejection Fraction 2C AL 48.0 % LA Diameter 3.0 cm LA Width 3.7 cm LA Height 3.8 cm RA Width 3.4 cm RA Height 3.9 cm Aorta at Sinotubular Diameter 3.6 cm M-MODE LV Diastolic Diameter MM 4.4 cm 4.2 - 5.9 / 3.9 - 5.3 cm LV Systolic Diameter MM 2.9 cm LV Ejection Fraction MM Teich 64.9 % IVS Diastolic Thickness MM 1.3 cm 0.6 - 1.0 / 0.6 - 0.9 cm IVS Systolic Thickness MM 1.9 cm LVPW Diastolic Thickness MM 1.3 cm 0.6 - 1.0 / 0.6 - 0.9 cm LVPW Systolic Thickness MM 1.7 cm Aortic Annulus Diameter 4.8 cm LA Ao Ratio MM 0.6 MV E Point Septal Separation 0.6 cm FINDINGS Left Ventricle Normal left ventricular cavity size. Normal left ventricular systolic function. No regional wall motion abnormalities. Left ventricular ejection fraction is estimated at 55 %. Right Ventricle The right ventricle is normal in size and function. RVSP could not be calculated due to incomplete tricuspid regurgitation velocity profile. Right Atrium The right atrium is normal in size. Left Atrium The left atrium is normal in size. Mitral Valve Structurally normal mitral valve without significant stenosis or prolapse. There is no mitral regurgitation. Aortic Valve Moderate aortic valve calcification. No aortic valve stenosis. Trace aortic valve regurgitation. Tricuspid Valve Structurally normal tricuspid valve without significant stenosis or regurgitation. Pulmonic Valve Structurally normal pulmonic valve without significant stenosis. There is no pulmonic regurgitation. Pericardium Normal pericardium without effusion. Aorta Normal ascending aorta dimension. CONCLUSIONS 1-Normal left ventricular cavity size. Normal left ventricular systolic function. No regional wall motion abnormalities. Left ventricular ejection fraction is estimated at 55 %. 2-Moderate aortic valve calcification. No aortic valve stenosis. Trace aortic valve regurgitation. 3-There is no pericardial effusion. 4-The right ventricle is normal in size and function. RVSP could not be calculated due to incomplete tricuspid regurgitation velocity profile. 5-No significant change since the prior echocardiogram study of 01/22/2021.. Maurice Chong MD (Electronically Signed) Final Date: 27 January 2021 21:42 S
[2021-01-28] VITALS (10 sets, daily range): BP systolic 105–133; BP diastolic 62–93; PULSE 65–93; RESP 15–27; TEMP 36.4–36.8; O2SAT 92–96
[2021-01-28] MEDS: enoxaparin 120 mg/0.8 mL Syringe SUBCUT (03:52)
[2021-01-28 05:07] LABS: Basophils # 0.1 10^3/uL (0.0-0.1); Basophils % 0.7 %; Eosinophils # 0.2 10^3/uL (0.0-0.8); Eosinophils % 2.6 %; Hematocrit 45.1 % (42.0-52.0); Hemoglobin 14.8 g/dL (11.7-16.6); Lymphocytes # 3.8 10^3/uL (0.8-4.8); Lymphocytes % 42.9 %; Mean Corpuscular HGB Conc 32.8 g/dL (30.0-36.0); Mean Corpuscular Hemoglobin 29.7 pg (28.0-34.0); Mean Corpuscular Volume 90.6 fL (80-94); Mean Platelet Volume 9.7 fL (7.4-10.4); Monocytes # 0.7 10^3/uL (0.2-0.9); Monocytes % 8.3 %; Neutrophils # 3.97 10^3/uL (1.8-7.7); Neutrophils % 44.6 %; Nucleated Red Blood Cells % 0 %; Platelet Count 347 10^3/cmm (130-400); Red Blood Count 4.98 10^6/uL (4.1-5.3); Red Cell Distribution Width 12.4 % (12.1-15.1); White Blood Count 8.9 10^3/uL (4.0-10.0)
[2021-01-28 05:33] LABS: Alanine Aminotransferase 40 U/L (0-41); Albumin Level 3.8 g/dL (3.5-5.2); Alkaline Phosphatase 84 IU/L (40-130); Anion Gap 10.6 (5-19); Aspartate Amino Transferase 22 U/L (0-40); Blood Urea Nitrogen 16 mg/dL (6-20); Calcium 8.4 mg/dL (8.5-10.5); Carbon Dioxide 28 mmol/L (22-29); Chloride 104 mmol/L (98-107); Globulin 2.6 g/dL (1.3-4.6); Glomerular Filtration Rate 70.9 mL/min (90-130); Glucose 98 mg/dL (65-115); Osmolality Calculated 287 mOsm/kg (285-295); Potassium 4.6 mmol/L (3.5-5.1); Sodium 138 mmol/L (136-145); Total Bilirubin 0.3 mg/dL (0.15-1.2); Total Protein 6.4 g/dL (6.6-8.7)
[2021-01-28] MEDS: lisinopril 5 mg Tablet 2.5 MG PO (08:02)
[2021-01-28] MEDS: clopidogrel 75 mg Tablet PO (08:02)
[2021-01-28] MEDS: atorvastatin 40 mg Tablet PO (08:03)
[2021-01-28] MEDS: isosorbide mononitrate ER 30 mg Tablet PO (08:03)
[2021-01-28] MEDS: metoprolol succinate ER (24 HR) 25 mg Tablet 12.5 MG PO (08:03)
[2021-01-28] MEDS: nicotine 14 mg Patch 1 PATCH TRANSDERMA (08:03)
[2021-01-28] MEDS: aspirin 81 mg EC Tablet PO (10:46)
[2021-01-28] MEDS: acetaminophen 325 mg Tablet 650 MG PO (11:38)
--- NOTE | 2021-01-28 16:46 | PM.DCS ---
Discharge Providers Date of Admission: 01/26/21 14:40 Date of Discharge: January 28, 2021 Attending Provider at Admission: Rebel Valencia MD Attending Provider at Discharge: Erika Romero MD Diagnoses at Discharge Discharge Diagnosis (1) Chest pain: Status: Acute Qualifiers: Chest pain type: unspecified Qualified Code(s): R07.9 - Chest pain, unspecified (2) Elevated troponin: Status: Acute (3) CAD (coronary artery disease): Status: Acute Qualifiers: Coronary Disease-Associated Artery/Lesion type: [place] artery [place] vs. transplanted heart: [place] heart Associated angina: with stable angina Qualified Code(s): I25.118 - Atherosclerotic heart disease of [place] coronary artery with other forms of angina pectoris (4) HTN (hypertension) with goal to be determined: Status: Acute (5) Hyperlipidemia: Status: Acute Qualifiers: Hyperlipidemia type: unspecified Qualified Code(s): E78.5 - Hyperlipidemia, unspecified (6) Acute bronchitis: Status: Acute Reason for Visit Reason for Visit: CHEST PAIN Hospital Course Hospital Course 50 year old male with past medical history of hypertension, hyperlipidemia, tobacco abuse with recent inferolateral STEMI on 01/22 , underwent PCI, s/p stent to obtuse marginal. He was discharged home on 23 January 2021 in a stable state on aspirin, Plavix, metoprolol succinate 12.5, atorvastatin 40 mg and lisinopril 2.5 mg. He presented again on 01/26 with SOB and retrosternal chest pain similar to previous pain though less intense. He was found to have elevated troponins which were flat on subsequent sets, no acute EKG changes. No significant change since the prior echocardiogram study of 01/22/2021. Overall his symptoms appeared consistent with angina, Imdur was added to his regimen. He remained chest pain-free subsequently during the hospital stay. Incidentally also noted to have bronchospasm. Patient reports a history of longstanding tobacco use, smoking, chronic cough and audible wheezing dating back at least 1 year. Overall suspect patient has underlying COPD due to chronic tobacco use. He reports improvement with nebulizers. Spiriva and Advair have been added to his daily medication regimen with as needed albuterol inhalation. PFT has been ordered. Referral provided for pulmonary for follow-up.f/up with cardiology in one week. Physical Exam Narrative: EXAM NARRATIVE: GEN: Awake, alert and oriented, no acute distress CVS: S1S2 N RS: CTA B/L Abd: Soft, nt/nd , bs+ UROLOGY TEACHER: no focal neuro deficits Discharge Data Data Completed and Pending: Completed Studies During Hospitalization Category Date Time Status XR chest 1V neena ble [id number] Stat Exams 01/26/21 12:29 Completed CV echo limited 9 3308 Routine Ultrasound 01/27/21 17:45 Completed Labs from last 24 hours 01/28/21 01/28/21 04:25 04:25 WBC 8.9 RBC 4.98 Hgb 14.8 Hct 45.1 MCV 90.6 MCH 29.7 MCHC 32.8 RDW 12.4 Plt Count 347 MPV 9.7 Neut % (Auto) 44.6 Lymph % (Auto) 42.9 [place] % (Auto) 8.3 Eos % (Auto) 2.6 Baso % (Auto) 0.7 Neut # (Auto) 3.97 Lymph # (Auto) 3.8 [place] # (Auto) 0.7 Eos # (Auto) 0.2 Baso # (Auto) 0.1 Nucleated RBC % (a uto) 0 Nucleated RBCs # 0.0 Sodium 138 Potassium 4.6 Chloride 104 Carbon Dioxide 28 Anion Gap 10.6 BUN 16 Creatinine 1.1 GFR Calculation 70.9 L Glucose 98 Calculated Osmolal ity 287 Calcium 8.4 L Total Bilirubin 0.3 AST 22 ALT 40 Alkaline Phosphata se 84 Total Protein 6.4 L Albumin 3.8 Globulin 2.6 Vitals: Last Vital Signs Temp 97.7 F 01/28/21 15:28 Pulse 93 01/28/21 15:28 Resp 24 H 01/28/21 15:28 BP 121/85 01/28/21 15:28 Pulse Ox 96 01/28/21 15:28 Discharge Plan Discharge Patient Disposition: Home Condition: Stable Prescriptions: New Wixela Inhub 250-50 mcg/dose blister with device 1 inh inhalation BID Qty: 60 RF: 0 Spiriva with HandiHaler 18 mcg capsule, w/inhalation device 1 cap inhalation DAILY 30 Days Qty: 30 RF: 0 albuterol sulfate 2.5 mg /3 mL (0.083 %) solution for nebulization 2.5 mg inhalation TID PRN (Reason: bronchospasm) 7 Days Qty: 63 RF: 0 isosorbide mononitrate 30 mg tablet extended release 24 hr 30 mg PO DAILY 30 Days Qty: 30 RF: 0 Continued clopidogrel 75 mg Tablet 75 mg PO DAILY Qty: 90 RF: 3 aspirin [Adult Low Dose Aspirin] 81 mg tablet,delayed release (DR/EC) 81 mg PO DAILY Qty: 90 RF: 4 metoprolol succinate 25 mg tablet extended release 24 hr 12.5 mg PO DAILY Qty: 30 RF: 4 atorvastatin 40 mg tablet 40 mg PO DAILY Qty: 30 RF: 5 lisinopril 5 mg tablet 2.5 mg PO DAILY Qty: 30 RF: 5 Discharge Orders: Discharge Order (Routine); Ordered 01/28/21 Ordered By: Erika Romero Other Ambulatory Orders: DME: Nebulizer with Neb Kit (Order) Location: None Selected Ordered By: Erika Romero Pulmonary Function Screen with Bronchodilator (Routine) Timeframe: 2 Weeks Facility: [facility] - Location: Respiratory Therapy Ordered By: Erika Romero Referrals: Sylvia Leach FNP [Nurse Practitioner] - 1 week (Please follow-up with Sylvia Leach on February 05 at 2:00P.M. If you have any questions or need to reschedule. Please call ) Estefani Gonzalez MD [Physician] - 2 weeks (Please follow-up with Dr. Gonzalez on February 12 at 9:00A.M. If you have any questions or need to reschedule. Please call ) Discharge Diet: Cardiac Discharge Activity: Resume usual activity Patient Instructions: Albuterol (By breathing), Tiotropium (By breathing), Fluticasone (Into the nose), Acute Bronchitis (DC), Chest Pain Stoplight Discharge Attestations Time Spent in Discharge Care*: greater than 30 min Quality Metrics Clinical Quality Measures During this hospital stay, did patient experience: None Coding Level of Care Code Acute Chg FW DC note Diagnoses Chest pain R07.9 Chest pain type: unspecified Elevated troponin R77.8 CAD (coronary artery disease) I25.118 Coronary Disease-Associated Artery/Lesion type: [place] artery [place] vs. transplanted heart: [place] heart Associated angina: with stable angina HTN (hypertension) with goal to be determined I10 Hyperlipidemia E78.5 Hyperlipidemia type: unspecified Acute bronchitis J20.9
--- NOTE | 2021-01-28 23:11 | P.PN_ITS ---
Subjective Subjective: Interval history: Denies any chest pain. Walking around without any difficulty. He thinks that bronchitis is much better after nebulizing an antibiotic. Medications: Reviewed: Yes Vitals/I&O/Wt Last Vital Signs Temp 97.7 F 01/28/21 15:28 Pulse 93 01/28/21 15:28 Resp 24 H 01/28/21 15:28 BP 121/85 01/28/21 15:28 Pulse Ox 96 01/28/21 15:28 01/28/21 01/28/21 01/29/21 14:59 22:59 06:59 Intake Total 720 / 720 Output Total 600 / 600 Balance 120 / 120 Physical Exam Narrative: EXAM NARRATIVE: GENERAL: Patient is alert, awake and oriented x3. NECK: No jugular vein distension. HEENT: No cyanosis. No icterus. No pallor. HEART: Regular S1 and S2. No murmur, rub or gallop. LUNGS: Clear to auscultate bilaterally. CENTRAL NERVOUS SYSTEM: Grossly nonfocal. EXTREMITIES: Data : 01/28/21 04:25 01/28/21 04:25 A&P Assessment and plan (1) Chest pain: Anginal CP, No EKG changes. started on imdur 30 mg daily. -complains of headache; will monitor. Status: Acute Qualifiers: Chest pain type: other chest pain Qualified Code(s): R07.89 - Other chest pain (2) Elevated troponin: Higher cardiac markers was remanent of prior ACS event few days ago. He continued to fine from cardiovascular perspective continue aspirin statin Plavix. Patient can be discharged home from cardiovascular perspective [place] Status: Acute (3) CAD in [place] artery: Stable. Continue current regimen. Status: Acute (4) HTN (hypertension) with goal to be determined: Well-controlled. Continue to monitor Status: Acute (5) Hyperlipidemia: Patient is on statin. Status: Acute Qualifiers: Hyperlipidemia type: unspecified Qualified Code(s): E78.5 - Hyperlipidemia, unspecified (6) Acute bronchitis: Much better improved. Status: Acute Additional A&P Information Acute bronchitis Thank you for allowing me to participate in patient's care. Please feel free to call with questions or concerns. Attestations Medical Necessity Statement*: Patient can be discharged home today Coding Level of Care Code Established Pt Acute Operational Meteorologist for Chg Fwd Patient Type Established History Detailed Exam Detailed Medical Decision Making Moderate Complexity Diagnoses Chest pain R07.89 Chest pain type: other chest pain Elevated troponin R77.8 CAD in [place] artery I25.10 HTN (hypertension) with goal to be determined I10 Hyperlipidemia E78.5 Hyperlipidemia type: unspecified Acute bronchitis J20.9
== END 2021-01-28 16:00 | disposition home or self-care (01) ==
LOC: ER 14:41 → CSU 15:13
PROVIDERS: Admitting Provider Internal Medicine; Emergency Provider Emergency Medicine; Visit Provider Student in an Organized Health Care Education/Training Program
DX: R07.9 Chest pain, unspecified (principal); R77.8 Other specified abnormalities of plasma proteins; I25.118 Atherosclerotic heart disease of native coronary artery with other forms of angina pectoris; I10 Essential (primary) hypertension; E78.5 Hyperlipidemia, unspecified; J20.9 Acute bronchitis, unspecified; J42 Unspecified chronic bronchitis; F17.210 Nicotine dependence, cigarettes, uncomplicated; Z95.5 Presence of coronary angioplasty implant and graft
CPT/HCPCS: 36415; 71045; 80053; 83880; 84484; 85025; 85610; 85730; 93005; 93308; 94640; 96372; 96374; 99285; G0378; J1650; J2405; Q0144

== ENCOUNTER → 2021-02-21 14:40 | Outpatient (BNVA) | payer OTHER, SELFPAY | PROVIDERS: Visit Provider Internal Medicine Critical Care Medicine | DX: Z01.812 Encounter for preprocedural laboratory examination (principal); Z20.822 Contact with and (suspected) exposure to COVID-19 | CPT/HCPCS: 87635 ==

== ENCOUNTER → 2021-03-27 08:47 | Outpatient (BNVA) | payer OTHER, SELFPAY | PROVIDERS: Visit Provider Internal Medicine Critical Care Medicine | DX: Z01.812 Encounter for preprocedural laboratory examination (principal); Z20.822 Contact with and (suspected) exposure to COVID-19 | CPT/HCPCS: 87635 ==

== ENCOUNTER 2021-04-03 06:43 | Outpatient (CLI) | payer OTHER, SELFPAY ==
--- NOTE | 2021-04-03 08:15 | PFTS_ITS ---
Date of Study:04/03/21 Date of Dictation: MECHANICS: Forced vital capacity (FVC) is reduced. Forced expiratory volume in one second (FEV1) is reduced. FEV1/FVC is normal. FLOW VOLUME LOOP: Scooping present. LUNG VOLUMES: Total lung capacity (TLC) is normal. Residual volume (RV) is normal. DIFFUSING CAPACITY FOR CARBON MONOXIDE: Normal. INTERPRETATION: The pulmonary function test is consistent with nonspecific ventilatory limitation. The postbronchodilator spirometry is consistent with mild restriction however the lung volumes are not suggestive of restrictive lung disease. This is likely secondary to a combined obstructive and restrictive ventilatory defects. Gas exchange (DLCO) is normal. MTDD
== END 2021-04-03 06:44 | disposition home or self-care (01) ==
LOC: RT 06:44
PROVIDERS: Visit Provider Internal Medicine Critical Care Medicine
DX: J42 Unspecified chronic bronchitis (principal)
CPT/HCPCS: 94060; 94726; 94729; J7611

== ENCOUNTER 2021-04-11 07:00 | Outpatient (CLI) | payer OTHER, SELFPAY ==
[2021-04-11 08:09] VITALS: BMI 30.9
--- NOTE | 2021-04-11 08:17 | ECG_ITS ---
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 Baseline heart rate was 86 beats per minute. Baseline blood pressure was 147/102 millimeters of mercury. Target heart rate was 170 beats per minute. Maximum heart rate achieved was 153, which was 90 % of the target heart rate. Maximum blood pressure was 210/118 millimeters of mercury. Total exercise time was 10 minutes 21 seconds. Maximum METs achieved was 13.5, maximum VO2 was 47.3. The reason for ending the test was maximum effort achieved. The patient complained of shortness of during the stress test, which then resolved at the end of the test. ELECTROCARDIOGRAM: BASELINE: Sinus rhythm, normal axis, no significant ST-T changes at the baseline noted. EXERCISE: At the peak exercise level, no significant ST-T changes suggestive of ischemia noted. RECOVERY: During the recovery period, heart rate dropped appropriately. No significant ST-T changes in the recovery suggestive of ischemia noted. CONCLUSION: 1. Exercise capacity good. 2. Heart rate response was appropriate. 3. Blood pressure response was appropriate. 4. Symptoms not suggestive of ischemia. 5. Electrocardiogram portion of the stress test was not suggestive of ischemia. 6. Nuclear scan will be documented separately. Electronically Signed On 04-14-2021 18:46:55 CDT by ALICIA CHONG [id number]
--- NOTE | 2021-04-11 08:17 | NMCV_ITS ---
NM ilir perf SPECT r/s* [id number] Estrada Puente Age: 50 Gender: M : 1970 Exam Date: 04/11/2021 08:19 Ordering Phys: Maurice Chong MD ([email or web address]) Technologist: DARRELL Crump Exam Location: [facility] Indications: CHEST PAIN STRESS TEST Please see separate stress test report in [facility] for full findings IMAGE PROTOCOL Rest/Stress 1 Exercise Day Radiopharmaceutical Dose (mCi) Administration Site Administered by Rest: Tc-99m 10.8 IV DARRELL aGndara Sestamibi Stress:Tc-99m 32.6 IV DARRELL Crump Sestamialonzo Rest: 11-Apr-2021 60 Discovery 630 Stress: 11-Apr-2021 30 Discovery 630 Radiopharmaceutical was injected at 85 % maximum heart rate. Images obtained in supine and prone position. SPECT RESULTS Technical Quality: Excellent Raw Data Analysis: Normal Image Corrections: No attenuation or motion correction applied Summed Stress Score: 0 Summed Rest Score: 10 Summed Difference Score: 0 PERFUSION FINDINGS Large area of decreased tracer uptake noted in basal to distal inferior inferoseptal and inferoapical wall on the rest images which improved significantly over stress images suggestive of artifact. FUNCTIONAL RESULTS (calculated via Gated SPECT) Stress Image LV EF (%): 69 Stress EDV (mL):98 TID: 0.75 Stress ESV (mL):30 Rest Image LV EF (%): 69 FUNCTIONAL FINDINGS: There is normal left ventricular systolic function. IMPRESSIONS No ischemia noted. EKG segment will be documented separately. Maurice Chong MD (Electronically Signed) Final Date: 11 April 2021 15:00 S
[2021-04-11 09:31] VITALS: BP 155/80; PULSE 97
== END 2021-04-11 07:01 | disposition home or self-care (01) ==
PROVIDERS: Visit Provider Internal Medicine Cardiovascular Disease
DX: R07.9 Chest pain, unspecified (principal)
CPT/HCPCS: 78452; 93017; A9500

== ENCOUNTER 2021-12-22 17:32 | Emergency (ER) | payer OTHER, SELFPAY ==
--- NOTE | 2021-12-22 17:34 | XRR_ITS ---
PROCEDURE INFORMATION: Exam: XR Left Knee Exam date and time: 12/22/2021 5:34 PM Age: 51 years old Clinical indication: Pain; Knee; Left; Additional info: Eval for injuries, heard a pop while playing football TECHNIQUE: Imaging protocol: XR Left knee. Views: 3 views. COMPARISON: No relevant prior studies available. FINDINGS: Bones/joints: Normal. Soft tissues: Normal. XR/XR knee LT 3V* [id number] IMPRESSION: No acute findings.
[2021-12-22 17:52] VITALS: BP 130/83; PULSE 100; RESP 18; TEMP 36.8; O2SAT 94; BMI 30.4
--- NOTE | 2021-12-22 18:28 | ED_ITS ---
HPI - Extremity Problem General: Chief complaint: Extremity Injury, Lower Stated complaint: Lt Knee Injury Time Seen by Provider: 12/22/21 18:20 History of Present Illness: Patient is a 51-year-old male comes to the ED with left knee injury. Patient was playing football today and he went to run and change directions and he felt a pop in his left knee. The pain caused him to fall to the ground. He reports now having 9 out of 10 left knee pain and states he cannot bear any weight on left leg. He says that his left knee feels unstable with any weightbearing. Patient has not taken any pain meds before coming to the ED. He states he does not want any narcotic pain meds or Tylenol or Motrin while here in the ED. He has some Tylenol at home he says he will take Associated symptoms: Deny chest pain, fever(s) or rash Review of Systems Const: Denies: fever(s), chills or fatigue Eyes: Denies: change in vision or eye discomfort ENMT: Denies: throat pain, odynophagia, nasal discharge or nasal congestion Card: Denies: chest pain, palpitations, edema, swelling of feet/ankles, d yspnea on exertion or orthopnea Resp: Denies: dyspnea, productive cough or non-productive cough GI: Denies: abdominal pain, nausea, vomiting, diarrhea, constipation or hematochezia : Denies: flank pain, difficulty urinating, dysuria or hematuria Musc: Reports: joint pain (left knee) and limited range of motion (left knee); Denies: neck pain, back pain or extremity swelling Skin/Breast: Denies: rash or new lesions Neuro: Denies: headache(s), numbness in extremities or weakness in extremities [facility] ED PFSH: Medical History Chronic bronchitis HTN (hypertension) with goal to be determined Hyperlipidemia Tobacco abuse Surgical History Hx of tonsillectomy Hx of total knee replacement Stented coronary artery Family History Mother CAD (coronary artery disease) Cancer Lung disease Stroke Grandmother CAD (coronary artery disease) Diabetes Grandfather CAD (coronary artery disease) Cancer Dementia Family/Other Suicide Denies family history of Clotting disorder Chronic kidney disease (CKD) Anesthesia complication Bleeding disorder Social History Smoking and tobacco status: former smoker Quit status (tobacco): has quit using tobacco Year quit tobacco: 2020 Former quit date comment: quit 3 weeks ago Alcohol intake: former Household members: spouse Number of children: 9 Current occupational status: employed Pets and animals: Yes Pets & animals: cat(s) and dog(s) Current gender identity: Male Physical Exam Const: COMMON NORMALS: patient oriented x3 and alert HENMT: COMMON NORMALS: normocephalic HEAD & SCALP: normocephalic MOUTH: Normal oral and palatal mucosa present THROAT: posterior oropharynx normal and uvula midline Neck/C-Spine: COMMON NORMALS: supple GENERAL: Yes normal visual inspection Resp: COMMON NORMALS: normal respiratory effort, No retractions, No use of accessory muscles and clear to auscultation bilaterally AUSCULTATION: clear to auscultation bilaterally Cardio: COMMON NORMALS: regular rate, regular rhythm, S1 normal heart sound present, S2 normal heart sound present, No gallops present (Cardio), No clicks present (Cardio), No murmurs present (Cardio) and Peripheral pulses 2+ throughout RATE: regular rate RHYTHM: regular rhythm HEART SOUNDS: S1 normal heart sound present and S2 normal heart sound present PERIPHERAL PULSES: Peripheral pulses 2+ throughout GI: COMMON NORMALS: Normal to inspection, nondistended, normoactive bowel sounds present, Soft to palpation, non-tender and no masses PALPATION: Yes Soft to palpation : COMMON NORMALS: Yes no CVA tenderness BLADDER/KIDNEY EXAM: Yes no CVA tenderness Back/Pelvis: COMMON NORMALS: no CVA tenderness Extremity: LEFT LOWER EXTREMITY: Yes knee joint Left knee: Yes inspection (No visible deformity), Yes palpation (Tenderness over medial, lateral and posterior aspect of knee), Yes ROM (Limited due to pain.) and Yes neurovascular exam (Intact) OTHER: Patient was unable to bear any weight on left leg due to pain in knee. Neuro: COMMON NORMALS: patient oriented x3 and moves all extremities SENSORIUM/ORIENTATION: Yes alert Skin: GENERAL SKIN EXAM: dry skin Course Vital Signs: Vital signs: Vital Signs Temperature 98.2 F 12/22/21 17:52 Pulse Rate 100 12/22/21 17:52 Respiratory Rate 18 12/22/21 17:52 Blood Pressure 130/83 12/22/21 17:52 Pulse Oximetry 94 12/22/21 17:52 MDM - Extremity (Nontraumatic) Medical Decision Making Patient is a 51-year-old male who comes to the ED with left knee injury. Was playing football outside and was running and went to pivot and he felt a pop in his left knee and fell to the ground and pain. He says his left knee feels unsteady with any weightbearing and is 9 out of 10 pain with weightbearing on left leg. Vitals are stable. Patient does have some palpable tenderness over the posterior, lateral and medial aspect of left knee. Neurovascular intact distally. Limited range of motion due to pain. X-ray of knee showed no acute fractures or findings. Patient was put in knee immobilizer and discharged home with crutches. I placed order with case management for patient be referred to Ortho for further evaluation of likely soft tissue injury of left knee. Return to ED precautions given. Patient did not want any pain meds and said he will just take [id number] Tylenol for pain. I told patient the special education case manager will contact him in the next several days to set up an appointment with Ortho. Patient understood and agreed with plan Lab Data Radiology Impressions Knee X-Ray 12/22/21 17:34 IMPRESSION: No acute findings. Discharge Plan Discharge Patient Disposition: Home Clinical Impression: Pain of left knee after injury Condition: Stable Prescriptions: No Action albuterol sulfate 2.5 mg /3 mL (0.083 %) solution for nebulization 2.5 mg inhalation Q6H PRN (Reason: shortness of breath or wheezing) 0RF albuterol sulfate [ProAir HFA] 90 mcg/actuation HFA aerosol inhaler 2 puff inhalation Q6H PRN (Reason: shortness of breath or wheezing) 30 Days Qty: 8.5 4RF aspirin [Adult Low Dose Aspirin] 81 mg tablet,delayed release (DR/EC) 81 mg PO DAILY Qty: 90 3RF atorvastatin 40 mg tablet 40 mg PO DAILY Qty: 90 3RF clopidogrel 75 mg tablet 75 mg PO DAILY Qty: 90 3RF lisinopril 5 mg tablet 2.5 mg PO DAILY Qty: 90 3RF metoprolol succinate 25 mg tablet extended release 24 hr 12.5 mg PO DAILY Qty: 90 3RF Spiriva Respimat 1.25 mcg/actuation mist 2 puff inhalation DAILY Qty: 4 3RF Discharge Orders: Discharge ED (Routine); Ordered 12/22/21 Ordered By: Parker Souza Referrals: Luciana Ochoa [Primary Care Provider] - Discharge Diet: Regular Discharge Activity: Limit activity as instructed and Use walker/crutches as instructed Patient Instructions: Knee Pain (ED), Knee Immobilizer (ED) Activity Restrictions/Additional Instructions: Follow-up with medical provider as directed. Case management should contact you the next several days to set up an appointment with Ortho for follow-up and further evaluation of left knee injury. Wear knee immobilizer, no weightbearing on left leg and use crutches for ambulation. Ice and elevate left knee throughout the day. Continue taking all home meds as previously prescribed. Take [id number] Tylenol for pain. Return to the ER or your medical provider if condition worsens. Please read and understand discharge instructions. Thank you for choosing [facility] for your healthcare needs today. Please realize this is an emergency room and that we are providing you with a medical screening exam and this may not be complete and all inclusive of all the testing and or work up that you may need to determine your ailment or severity of your illness. It is very important that you follow up as instructed or that you return to the Emergency Department should you have concerns or if your condition changes or worsens in any way. Coding Level of Care Code ED Automatic Clipper And Stripper for Rola Rios Exam Comprehensive
--- NOTE | 2021-12-23 10:08 | DCPLANNER ---
Addendum entered by Xiomara Richardson 01/08/22 09:04: Patient had a follow up appointment scheduled for 12.30.[address] Ahmadi at ortho - patient did attend appointment. Addendum entered by Xiomara Richardson 12/29/21 09:27: Patient has a follow up appointment scheduled for Thursday, December 30, 2021 at 9:[address] Ahmadi at ortho. Clinic will call patient with appointment information. Original Note: retail analytics manager had message to schedule a follow up appointment for patient with ortho. retail analytics manager called the ortho clinic, spoke with Jody, gave clinic patients information. retail analytics manager was told that patients information would be printed and reviewed. Clinic will call patient with appointment information.
== END 2021-12-22 19:32 | disposition home or self-care (01) ==
PROVIDERS: Emergency Provider Physician Assistant; PCP Registered Nurse
DX: S89.92XA Unspecified injury of left lower leg, initial encounter (principal); X50.1XXA Overexertion from prolonged static or awkward postures, initial encounter; Y93.61 Activity, american tackle football; Z79.82 Long term (current) use of aspirin; Z79.02 Long term (current) use of antithrombotics/antiplatelets; I10 Essential (primary) hypertension; E78.5 Hyperlipidemia, unspecified; Z87.891 Personal history of nicotine dependence; Z96.659 Presence of unspecified artificial knee joint
CPT/HCPCS: 29530; 73562; 99283; E0114

== ENCOUNTER → 2022-01-05 08:44 | Outpatient (BNVA) | payer OTHER, SELFPAY | PROVIDERS: PCP Registered Nurse; Visit Provider Podiatrist Foot & Ankle Surgery | DX: M25.572 Pain in left ankle and joints of left foot (principal); M79.672 Pain in left foot | CPT/HCPCS: 73610; 73630 ==

== ENCOUNTER 2022-02-16 14:10 | Outpatient (CLI) | payer OTHER, SELFPAY ==
--- NOTE | 2022-02-16 14:30 | MR_ITS ---
WS: [id number] MRI LEFT KNEE NONCONTRAST TECHNIQUE: Axial PD, coronal PD fat sat, coronal PD, sagittal PD, and sagittal PD fat-sat images obta ined. CLINICAL INFORMATION: S83.8X9A - Sprain of other specified parts of unspecified... COMPARISON: None. FINDINGS: Distal quadriceps and patella tendons are intact. Normal ACL and PCL. Horizontal tear posterior horn medial meniscus extending to the articular surface. This extends to the free edge of the meniscus. An terior horn appears intact. Tiny nondisplaced tibial plateau fracture with surrounding edema in the p osterior lateral tibial plateau and tibial metaphysis. Tiny visualized fracture line on the T1 imagin g. Lobulated popliteal cyst measuring 1.4 x 2.1 x 10.3 cm. Normal LCL. Tiny amount of fluid and edema de ep to the MCL consistent with grade one injury. MCL appears grossly intact. Advanced chondromalacia p atella with subchondral edema. Normal medial and lateral patellar retinaculum.. MR/MR knee LT wo con* [id number] IMPRESSION: 1. Normal ACL and PCL. 2. Horizontal tear posterior horn medial meniscus extending to the articular s urface and free edge of the meniscus. 3. Tiny nondisplaced tibial plateau fracture with surrounding edema in the pos terior lateral tibial plateau and tibial metaphysis. Tiny visualized fracture l ine on the T1 imaging. Diffuse surrounding edema. 4. Grade 1 injury MCL. Normal LCL. 5. Advanced chondromalacia patella with a small amount of subchondral edema. 6. Large lobulated popliteal cyst as described above Outbridge grading: grade IV: full-thickness cartilage loss with underlying bone reactive changes
== END 2022-02-16 14:11 | disposition home or self-care (01) ==
PROVIDERS: PCP Registered Nurse; Visit Provider Orthopaedic Surgery
DX: S83.242A Other tear of medial meniscus, current injury, left knee, initial encounter (principal); S82.092A Other fracture of left patella, initial encounter for closed fracture; X58.XXXA Exposure to other specified factors, initial encounter; M22.42 Chondromalacia patellae, left knee; M71.22 Synovial cyst of popliteal space [Baker], left knee
CPT/HCPCS: 73721

== ENCOUNTER 2022-02-28 00:55 | Emergency (ER) | payer OTHER, SELFPAY ==
[2022-02-28 01:06] VITALS: BP 179/106; PULSE 82; RESP 20; TEMP 36.6; O2SAT 98; BMI 30.1
--- NOTE | 2022-02-28 01:21 | W.ED.HA ---
HPI - Headache General: Chief Complaint: Headache Stated Complaint: possible stroke Time Seen by Provider: 02/28/22 01:21 History of Present Illness: Mr. Puente is a 51-year-old gentleman with significant past medical history of hypertension, hyperlipidemia, CAD with history of VT presenting to the emergency department due to headache and right-sided throat squeezing sensation. Onset of symptoms was subacute approximately 1 PM yesterday while at rest. He denies associated chest pain or shortness of breath however reports that this is similar to prior episodes of heart attack. Additionally has noticed blood pressures been higher than normal for him. Intensity of symptoms is moderate. Course has persisted. No no other known specific exacerbating or provoking factors. Denies history of frequent headache. No other specific changes in health, exacerbating, or alleviating factors identified. Onset (ago): hour(s) Location: frontal Severity: moderate Quality & Timing: throbbing and squeezing Review of Systems General: Reports: 10 or more systems reviewed and unremarkable except in HPI and below PFSH ED PFSH: Medical History Chronic bronchitis HTN (hypertension) with goal to be determined Hyperlipidemia Tobacco abuse Surgical History Hx of tonsillectomy Hx of total knee replacement Stented coronary artery Family History Mother CAD (coronary artery disease) Cancer Lung disease Stroke Grandmother CAD (coronary artery disease) Diabetes Grandfather CAD (coronary artery disease) Cancer Dementia Family/Other Suicide Denies family history of Clotting disorder Chronic kidney disease (CKD) Anesthesia complication Bleeding disorder Social History Smoking and tobacco status: former smoker Quit status (tobacco): has quit using tobacco Year quit tobacco: 2020 Former quit date comment: quit 3 weeks ago Alcohol intake: former Household members: spouse Number of children: 9 Current occupational status: employed Pets and animals: Yes Pets & animals: cat(s) and dog(s) Current gender identity: Male Physical Exam Const: COMMON NORMALS: patient oriented x3 and alert GENERAL APPEARANCE: cooperative and well developed HENMT: COMMON NORMALS: normocephalic and atraumatic HEAD & SCALP: normocephalic and atraumatic THROAT: posterior oropharynx normal Eye: COMMON NORMALS: conjunctivae normal CONJUNCTIVA: Yes conjunctivae normal SCLERA: sclerae normal Neck/C-Spine: COMMON NORMALS: supple GENERAL: Yes trachea midline Resp: COMMON NORMALS: normal respiratory effort and clear to auscultation bilaterally EFFORT & INSPECTION: Yes able to speak in complete sentences AUSCULTATION: clear to auscultation bilaterally Cardio: COMMON NORMALS: regular rate and regular rhythm RATE: regular rate RHYTHM: regular rhythm GI: COMMON NORMALS: Soft to palpation PALPATION: Yes Soft to palpation and No Tenderness to palpation present (GI) PERCUSSION: normal to percussion Extremity: GENERAL: Yes normal exam except as noted and No edema Neuro: COMMON NORMALS: patient oriented x3, CN's II-XII intact bilaterally, moves all extremities, no focal motor deficits and no sensory deficits noted SENSORIUM/ORIENTATION: Yes alert and No Orientation impaired Psych: COMMON NORMALS: mental status grossly normal and Normal thought process present THOUGHT PROCESS: Normal thought process present Course ED course: - Patient was seen and evaluated by me at bedside - Patient placed on cardiac monitors, IV access obtained - Initial evaluation notable for exam as above. No focal neurologic deficits. - Labs and xrays personally interpreted by me. EKG reviewed with no ST segment elevation meeting STEMI criteria. Sinus rhythm. -Aspirin and analgesia given - Labs notable for minimal leukocytosis with hemoconcentration. Metabolic panel with perhaps mild dehydration. Troponin negative with negative delta troponin. - Imaging notable for no lobar consolidation or pneumothorax. Negative head CT. - Upon serial reexamination after treatment the patient was mildly improved - Based on patient history, evaluation, and testing as interpreted the most likely cause of the patient's condition is headache and high blood pressure concerning for atypical chest pain of uncertain etiology. - The results of ED evaluation were discussed with the patient including prescriptions and/or symptomatic cares (if applicable) including appropriate and responsible use, followup plan, and return precautions. The patient verbalized understanding and felt safe for discharge. - Patient discharged in satisfactory condition. Note: Click bubbles or prepopulated corea in note writing are used for assistance with data collection and billing and are inherently more limited than narrative and other text portions of this note. Please use narrative for additional clinical history and defer to narrative/free test for any case of contradictory information. If information appears in only free text or click bubble it should be considered present or absent as reported. Please contact note marine underwriter for clarifications of clinical information or contradictory information. MDM is a brief summary, contradictory or erroneous seeming information should be clarified and full note should be reviewed. Vital Signs: Vital signs: Vital Signs Temperature 97.9 F 02/28/22 01:06 Pulse Rate 64 02/28/22 05:43 Respiratory Rate 17 02/28/22 05:43 Blood Pressure 121/80 02/28/22 05:43 Pulse Oximetry 97 02/28/22 05:43 MDM - Headache Medical Decision Making 51-year-old gentleman presenting with similar symptoms to prior VT which are atypical. Negative ED evaluation for obvious cause. Improved with treatment. Satisfactory for outpatient management. Medical Records I reviewed the patient's medical records. Lab Data I reviewed the patient's lab results. : 02/28/22 01:20 02/28/22 01:20 Radiology Impressions Chest X-Ray 02/28/22 01:36 IMPRESSION: No acute abnormality demonstrated. Head CT 02/28/22 01:55 IMPRESSION: No evidence of acute intracranial abnormality. Laboratory Results WBC 10.8 10^3/uL (4.0-10.0) H 02/28/22 01:20 RBC 5.60 10^6/uL (4.1-5.3) H 02/28/22 01:20 Hgb 16.6 g/dL (11.7-16.6) 02/28/22 01:20 Hct 48.2 % (42.0-52.0) 02/28/22 01:20 MCV 86.1 fl (80-94) 02/28/22 01:20 MCH 29.6 pg (28.0-34.0) 02/28/22 01:20 MCHC 34.4 g/dL (30.0-36.0) 02/28/22 01:20 RDW 12.2 % (12.1-15.1) 02/28/22 01:20 Plt Count 341 10^3/cmm (130-400) 02/28/22 01:20 MPV 9.6 fL (7.4-10.4) 02/28/22 01:20 Neut % (Auto) 48.0 % 02/28/22 01:20 Lymph % (Auto) 40.7 % 02/28/22 01:20 [place] % (Auto) 7.6 % 02/28/22 01:20 Eos % (Auto) 2.5 % 02/28/22 01:20 Baso % (Auto) 0.8 % 02/28/22 01:20 Neut # (Auto) 5.18 10^3/uL (1.8-7.7) 02/28/22 01:20 Lymph # (Auto) 4.4 10^3/uL (0.8-4.8) 02/28/22 01:20 [place] # (Auto) 0.8 10^3/uL (0.2-0.9) 02/28/22 01:20 Eos # (Auto) 0.3 10^3/uL (0.0-0.8) 02/28/22 01:20 Baso # (Auto) 0.1 10^3/uL (0.0-0.1) 02/28/22 01:20 Nucleated RBC % (auto) 0 % 02/28/22 01:20 Nucleated RBCs # 0.0 /100WBC 02/28/22 01:20 PT 13.80 SECONDS (12.1-14.9) 02/28/22 01:20 INR 1.03 (0.8-1.2) 02/28/22 01:20 APTT 30.6 SECONDS (23.9-36.7) 02/28/22 01:20 Sodium 138 mmol/L (136-145) 02/28/22 01:20 Potassium 4.1 mmol/L (3.5-5.1) 02/28/22 01:20 Chloride 104 mmol/L (98-107) 02/28/22 01:20 Carbon Dioxide 21 mmol/L (22-29) L 02/28/22 01:20 Anion Gap 17.1 (5-19) 02/28/22 01:20 BUN 11 mg/dL (6-20) 02/28/22 01:20 Creatinine 0.9 mg/dL (0.7-1.2) 02/28/22 01:20 GFR Calculation 89.0 mL/min (90-130) L 02/28/22 01:20 Glucose 98 mg/dL (65-115) 02/28/22 01:20 Calculated Osmolality 285 mOsm/kg (285-295) 02/28/22 01:20 Calcium 8.4 mg/dL (8.5-10.5) L 02/28/22 01:20 Total Bilirubin 0.3 mg/dL (0.15-1.2) 02/28/22 01:20 AST 19 U/L (0-40) 02/28/22 01:20 ALT 33 U/L (0-41) 02/28/22 01:20 Alkaline Phosphatase 108 IU/L (40-130) 02/28/22 01:20 Troponin T Baseline 11 ng/L (0-15) 02/28/22 01:20 Troponin T 120 Minute 10.22 ng/L (0-15) 02/28/22 04:06 Delta Troponin T Not Reportable 02/28/22 04:06 NT-Pro-B Natriuret Pep 22 pg/mL (0-125) 02/28/22 01:20 Total Protein 6.9 g/dL (6.6-8.7) 02/28/22 01:20 Albumin 4.4 g/dL (3.5-5.2) 02/28/22 01:20 Globulin 2.5 g/dL (1.3-4.6) 02/28/22 01:20 Discharge Plan Discharge Patient Disposition: Home Clinical Impression: Headache, Hypertension, Atypical chest pain Condition: Stable Prescriptions: No Action lisinopril 5 mg tablet 5 mg PO DAILY Qty: 90 3RF metoprolol succinate 25 mg tablet extended release 24 hr 25 mg PO DAILY Qty: 90 3RF atorvastatin 80 mg tablet 80 mg PO DAILY Qty: 90 1RF clopidogrel 75 mg tablet 75 mg PO DAILY Qty: 90 1RF aspirin [Adult Low Dose Aspirin] 81 mg tablet,delayed release (DR/EC) 81 mg PO DAILY Qty: 90 1RF Discharge Orders: Discharge ED (Routine); Ordered 02/28/22 Ordered By: Mitch Choudhary Referrals: Luciana Ochoa [Primary Care Provider] - Discharge Diet: Usual diet Discharge Activity: Increase activity as tolerated Patient Instructions: Chest Pain (ED), Acute Headache (ED), Hypertension (ED) Activity Restrictions/Additional Instructions: Thank you for visiting the emergency department. You were seen and evaluated for headache, high blood pressure, and neck pain. The exact cause of your symptoms is unclear. No evidence of heart attack was seen on labs and no evidence of stroke on imaging. Please follow-up with your primary care provider and cardiology. Wheeze return to the emergency department for worsening symptoms or anything else that you are concerned about and feel needs emergency department evaluation. Coding Level of Care Code ED [employer] for Rola Rios
--- NOTE | 2022-02-28 01:36 | XRR_ITS ---
PROCEDURE INFORMATION: Exam: XR Chest Exam date and time: 02/28/2022 1:49 AM Age: 51 years old Clinical indication: Chest pressure; Prior surgery; Surgery type: Coronary stents; Patient HX: C/O chest pain. History of stemi. TECHNIQUE: Imaging protocol: XR of the chest. Views: 1 view. COMPARISON: CR XR chest 1V portable [id number] 01/26/2021 1:00 PM FINDINGS: Tubes, catheters and devices: Monitor leads project over the chest. Lungs: Low lung volume inspiration. No consolidation. Pleural spaces: No costophrenic angle blunting. No pneumothorax. Heart/Mediastinum: Heart size is normal. Bones/joints: No acute osseous abnormality. XR/XR chest 1V portable [id number] IMPRESSION: No acute abnormality demonstrated.
--- NOTE | 2022-02-28 01:36 | ECG_ITS ---
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 Measurements Intervals [place] Rate: 77 P: 47 IN: 177 QRS: 48 QRSD: 89 T: 70 QT: 378 QTc: 428 Interpretive Statements SINUS RHYTHM Compared to ECG 01/27/2021 06:14:05 No significant changes Electronically Signed On 02-28-2022 12:59:57 CDT by David Henderson M.D. [email or web address]
[2022-02-28 01:44] LABS: Basophils # 0.1 10^3/uL (0.0-0.1); Basophils % 0.8 %; Eosinophils # 0.3 10^3/uL (0.0-0.8); Eosinophils % 2.5 %; Hematocrit 48.2 % (42.0-52.0); Hemoglobin 16.6 g/dL (11.7-16.6); Lymphocytes # 4.4 10^3/uL (0.8-4.8); Lymphocytes % 40.7 %; Mean Corpuscular HGB Conc 34.4 g/dL (30.0-36.0); Mean Corpuscular Hemoglobin 29.6 pg (28.0-34.0); Mean Corpuscular Volume 86.1 fl (80-94); Mean Platelet Volume 9.6 fL (7.4-10.4); Monocytes # 0.8 10^3/uL (0.2-0.9); Monocytes % 7.6 %; Neutrophils # 5.18 10^3/uL (1.8-7.7); Nucleated Red Blood Cells % 0 %; Platelet Count 341 10^3/cmm (130-400); Red Cell Distribution Width 12.2 % (12.1-15.1); White Blood Count 10.8 10^3/uL (4.0-10.0)
[2022-02-28] MEDS: aspirin 81 mg Chew Tablet 324 MG PO (01:50)
[2022-02-28 01:53] LABS: INR 1.03 (0.8-1.2)
[2022-02-28 01:54] LABS: Partial Thromboplastin Time 30.6 SECONDS (23.9-36.7)
--- NOTE | 2022-02-28 01:55 | CTR_ITS ---
PROCEDURE INFORMATION: Exam: CT Head Without Contrast Exam date and time: 02/28/2022 2:04 AM Age: 51 years old Clinical indication: Pain; Patient HX: C/O headache. Hypertensive on monitor. TECHNIQUE: Imaging protocol: Computed tomography of the head without contrast. Radiation optimization: All CT scans at this facility use at least one of these dose optimization techniques: automated exposure control; mA and/or kV adjustment per patient size (includes targeted exams where dose is matched to clinical indication); or iterative reconstruction. COMPARISON: No relevant prior studies available. RADIATION DOSE METRICS: Total DLP (mGy-cm): 900.38 FINDINGS: Brain: No acute abnormality. No edema or mass effect. No hemorrhage. Cerebral ventricles: No acute abnormality. No significant ventriculomegaly. Paranasal sinuses: No significant or acute abnormality. No air-fluid levels. Mastoid air cells: No acute abnormality. No significant mastoid effusion. Bones/joints: No acute osseous abnormality. No acute fracture. Soft tissues: No significant soft tissue abnormalities. CT/CT head wo con* [id number] IMPRESSION: No evidence of acute intracranial abnormality.
[2022-02-28 02:06] LABS: Troponin(5th) Baseline 11 ng/L (0-15)
[2022-02-28 02:16] LABS: Alanine Aminotransferase 33 U/L (0-41); Albumin Level 4.4 g/dL (3.5-5.2); Alkaline Phosphatase 108 IU/L (40-130); Anion Gap 17.1 (5-19); Aspartate Amino Transferase 19 U/L (0-40); Blood Urea Nitrogen 11 mg/dL (6-20); Calcium 8.4 mg/dL (8.5-10.5); Carbon Dioxide 21 mmol/L (22-29); Chloride 104 mmol/L (98-107); Globulin 2.5 g/dL (1.3-4.6); Glucose 98 mg/dL (65-115); NT Pro B Type Natriuretic Pept 22 pg/mL (0-125); Osmolality Calculated 285 mOsm/kg (285-295); Potassium 4.1 mmol/L (3.5-5.1); Sodium 138 mmol/L (136-145); Total Bilirubin 0.3 mg/dL (0.15-1.2); Total Protein 6.9 g/dL (6.6-8.7)
--- NOTE | 2022-02-28 03:36 | ECG_ITS ---
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 Measurements Intervals [place] Rate: 68 P: 54 AL: 166 QRS: 64 QRSD: 90 T: 76 QT: 413 QTc: 439 Interpretive Statements SINUS RHYTHM Compared to ECG 02/28/2022 01:04:37 No significant changes Electronically Signed On 02-28-2022 13:01:15 CDT by David Henderson M.D. [id number]
[2022-02-28 03:56] VITALS: BP 154/89; PULSE 65; RESP 16; O2SAT 98
[2022-02-28 03:58] VITALS: RESP 16
[2022-02-28] MEDS: morphine 4 mg/mL SDV 1 mL IVP (03:58)
[2022-02-28 04:35] LABS: Troponin 5 2HR 10.22 ng/L (0-15)
[2022-02-28 05:43] VITALS: BP 121/80; PULSE 64; RESP 17; O2SAT 97
== END 2022-02-28 05:45 | disposition home or self-care (01) ==
PROVIDERS: Emergency Provider Emergency Medicine; PCP Registered Nurse
DX: R51.9 Headache, unspecified (principal); I10 Essential (primary) hypertension; R07.89 Other chest pain; E78.5 Hyperlipidemia, unspecified; Z82.3 Family history of stroke; Z79.82 Long term (current) use of aspirin; Z87.891 Personal history of nicotine dependence
CPT/HCPCS: 70450; 71045; 80053; 83880; 84484; 85025; 85610; 85730; 93005; 96374; 99285; J2270

== ENCOUNTER 2022-04-17 06:59 | Day surgery (SDC) | payer OTHER, SELFPAY ==
[2022-04-16 12:37] VITALS: BMI 31.8
[2022-04-17] VITALS (14 sets, daily range): BP systolic 112–154; BP diastolic 71–101; PULSE 73–95; RESP 12–18; TEMP 36.3–36.4; O2SAT 92–96
[2022-04-17] MEDS: sodium chloride 0.9% 1,000 ML 30 ML IV (08:18)
[2022-04-17] MEDS: midazolam 1 mg/mL INJ 2 mL 2 MG IVP (08:30)
--- NOTE | 2022-04-17 08:55 | ANES.PREANE2 ---
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 Operation Date: 04/17/22 08:35 Proposed Procedures p Ankle Arthroscopy 87901/m19.172(Left) - Chago Christine DPM Familial anesthetic complications: none Was Beta Imer taken within 24 hours: Yes Was Clonidine taken within 24 hours: N/A Last intake: Intake Last Liquid Date 04/16/22 Last Liquid Time 23:45 Last Solid Date 04/16/22 Last Solid Time 20:00 Social Tobacco and No alcohol Exam alert, oriented x 3 and regular rate & rhythm rhonchi Airway Submandibular: within normal limits Cervical ROM: within normal limits Mallampati: Class II Dentition: chipped Pulmonary Chronic Obstructive Pulmonary Disease CV/HEM Coronary Artery Disease, Hypertension and Myocardial Infarction Metabolic Hyperlipidemia Anesthetic Plan ASA status: 2 Anesthesia: General and Regional (specify below) (left popliteal blk) Medications/Allergies Home Medications Medication Instructions Recorded Confirmed Last Taken Type aspirin 81 mg tablet,delayed 81 mg PO DAILY #90 tab 02/16/22 04/17/22 04/12/22 Rx release (Adult Low Dose Aspirin) clopidogrel 75 mg tablet 75 mg PO DAILY #90 tab 02/16/22 04/16/22 04/12/22 Rx lisinopril 5 mg tablet 5 mg PO DAILY #90 tab 02/27/22 04/17/22 04/15/22 Rx metoprolol succinate 25 mg 25 mg PO DAILY #90 tab 02/27/22 04/17/22 04/16/22 Rx tablet,extended release 24 hr atorvastatin 80 mg tablet (Lipitor) 80 mg PO DAILY 04/16/22 04/17/22 04/15/22 History Allergies Allergy/AdvReac Type Severity Reaction Status Date / Time No Known Allergies Allergy Verified 04/16/22 12:35 Current Medications Generic Name Dose Route Start Last Admin Trade Name Freq PRN Reason Stop Dose Admin Sodium Chloride 1,000 mls @ 30 mls/hr 04/17/22 07:15 04/17/22 08:18 Sodium Chloride 0.9% IV 04/18/22 07:14 30 mls/hr .Q24H RAVI Administration Midazolam HCl 2 mg 04/17/22 07:09 04/17/22 08:30 Midazolam 1 Mg/Ml Inj 2 Ml IVP 2 mg Q5M PRN Administration Preop Anxiety PFSH Anesthesia Medical History Chronic bronchitis HTN (hypertension) with goal to be determined Hyperlipidemia Tobacco abuse Surgical History Hx of tonsillectomy Hx of total knee replacement Stented coronary artery Family History Mother CAD (coronary artery disease) Cancer Lung disease Stroke Grandmother CAD (coronary artery disease) Diabetes Grandfather CAD (coronary artery disease) Cancer Dementia Family/Other Suicide Denies family history of Clotting disorder Chronic kidney disease (CKD) Anesthesia complication Bleeding disorder Social History Smoking and tobacco status: former smoker Quit status (tobacco): has quit using tobacco Year quit tobacco: 2020 Former quit date comment: quit 3 weeks ago Alcohol intake: former Household members: spouse Number of children: 9 Current occupational status: employed Pets and animals: Yes Pets & animals: cat(s) and dog(s) Current gender identity: Male Data Anesthesia Cardiac Studies: Echocardiogram Limited Views 01/27/21 Echocardiogram Ultrasound 01/22/21 Sestamibi Stress Test (Cardiology) 04/11/21
--- NOTE | 2022-04-17 08:56 | W.PM.OPSUD ---
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 PLANNED PROCEDURE: Operation Date: 04/17/22 08:35 Proposed Procedures p Ankle Arthroscopy 21219/m19.172(Left) - Chago Christine DPM
--- NOTE | 2022-04-17 08:57 | ANES.PROC ---
Anesthesia Procedures Procedure/Date: 04/17/22 Nerve Block ^: Nerve Block 1: Main Anesthesia: general anesthesia Time Out Performed: Yes Consent: requested by attending/covering physician, from patient, risks and benefits reviewed and patient agrees to proceed Nerve block location: popliteal (left) Anesthesia monitors applied: pulse oximetry, EKG, BP cuff and oxygen Nerve block position: supine Anesthetic Used: ropivicaine 0.5% Amount of anesthesia used (mL): 30 Ultrasound used to: recognize landmarks Nerve Stimulator Used?: No Interscalene/Femoral BLK: 4 stimuplex 21 g needle used for position and inplane approach Injection: neg aspiration of heme Patient Tolerated Procedure: well Complications: none
--- NOTE | 2022-04-17 08:58 | PM.OPSURHP ---
Providers/Chief Complaint Primary Care Provider: Luciana Ochoa Chief Complaint: post traumatic osteoarthritis, left ankle and foot History of Present Illness Estrada Puente is a 51 year old male ?presenting to clinic for evaluation of left foot and ankle pain. Patient locates the constant 7/10 burning, dull and achy pain at the top of left foot and lateral left ankle. He has been experiencing this discomfort for about 4 years. Patient is here to discuss surgical approach- utility of ankle arthroscopy with debridement. Review of Systems General: Reports: 10 or more systems reviewed and unremarkable except in HPI and below Const: Denies: fever(s) or chills Eyes: Denies: change in vision Card: Denies: chest pain or palpitations Resp: Denies: dyspnea or productive cough GI: Denies: abdominal pain, nausea or vomiting : Denies: flank pain Musc: Reports: extremity pain Skin/Breast: Denies: rash Neuro: Denies: numbness in extremities, sensory changes or frequent falls Psych: Denies: suicidal ideation Rafy/Lymph: Denies: easy bruising Medications/Allergies Home Medications Medication Instructions Recorded Confirmed Last Taken Type aspirin 81 mg tablet,delayed 81 mg PO DAILY #90 tab 02/16/22 04/17/22 04/12/22 Rx release (Adult Low Dose Aspirin) clopidogrel 75 mg tablet 75 mg PO DAILY #90 tab 02/16/22 04/16/22 04/12/22 Rx lisinopril 5 mg tablet 5 mg PO DAILY #90 tab 02/27/22 04/17/22 04/15/22 Rx metoprolol succinate 25 mg 25 mg PO DAILY #90 tab 02/27/22 04/17/22 04/16/22 Rx tablet,extended release 24 hr atorvastatin 80 mg tablet (Lipitor) 80 mg PO DAILY 04/16/22 04/17/22 04/15/22 History Allergies Allergy/AdvReac Type Severity Reaction Status Date / Time No Known Allergies Allergy Verified 04/16/22 12:35 PFSH PFSH: Medical History Chronic bronchitis HTN (hypertension) with goal to be determined Hyperlipidemia Tobacco abuse Surgical History Hx of tonsillectomy Hx of total knee replacement Stented coronary artery Family History Mother CAD (coronary artery disease) Cancer Lung disease Stroke Grandmother CAD (coronary artery disease) Diabetes Grandfather CAD (coronary artery disease) Cancer Dementia Family/Other Suicide Denies family history of Clotting disorder Chronic kidney disease (CKD) Anesthesia complication Bleeding disorder Social History Smoking and tobacco status: former smoker Quit status (tobacco): has quit using tobacco Year quit tobacco: 2020 Former quit date comment: quit 3 weeks ago Alcohol intake: former Household members: spouse Number of children: 9 Current occupational status: employed Pets and animals: Yes Pets & animals: cat(s) and dog(s) Current gender identity: Male Vital Signs Vitals Signs: Last Vital Signs Temp 97.5 F L 04/17/22 07:22 Pulse 73 04/17/22 08:35 Resp 12 04/17/22 08:35 BP 121/89 04/17/22 08:35 Pulse Ox 93 04/17/22 08:35 Weight: Weight last 48 hrs Weight 255 lb Physical Exam Narrative: EXAM NARRATIVE: ?Patient is alert and oriented ?3 and in no acute distress.? The following is a focused bilateral lower extremity exam. VASCULAR: Dorsalis pedis and posterior tibial arteries palpable +2.? Capillary refill time less than 3 seconds to the distal hallux bilaterally. Calf is supple and nontender proximally and distally.? Mild edema to the left ankle.? Pedal hair growth present.? Minor varicosities to the left leg. NEUROLOGICAL: Epicritic and protopathic sensations grossly intact to the lower extremities.? +2 Achilles tendon reflex noted bilaterally.? Negative Tinel sign upon percussion of lower extremity nerves. DERMATOLOGICAL: Lower extremity skin is well-hydrated, normal texture and turgor.? There are no open sores or lesions noted to the lower extremities.? No erythema or ecchymosis present to the bilateral legs and feet. MUSCULOSKELETAL: Pain to palpation at the anterior left ankle.? Osseous and range of motion with dorsiflexion 5 degrees beyond neutral with the left ankle with crepitus present.? No palpable mass along the course of the plantar fascia appreciated.? No pain to palpation along the course of the bilateral Achilles tendon.? No pain to palpation along the course posterior tibial tendon or peroneal tendons.? No pain with [id number] compression of calcaneus, bilaterally.? Muscle strength is 5/5 in all 3 cardinal planes pain-free without guarding to the foot and ankle, bilaterally. CARDIOVASCULAR: S1, S2, normal rate, normal rhythm. Dorsalis pedis and posterior tibial arteries palpable. LUNGS: Clear to auscltation, no use of acessory muscles, no crackles or wheezes. A&P Assessment and plan (1) Post-traumatic arthritis of left ankle: Status: Acute (2) Impingement syndrome of left ankle: Status: Acute (3) Left ankle pain: Status: Acute Plan Patient has had chronic pain at the left ankle, pain is maximum with dorsiflexing his left ankle in a points to pain at the anterior left ankle.? X-ray 3 views today's visit left foot and ankle shows anterior osseous impingement with osteophyte at the anterior distal tibia at the dorsal talus. Patient had a myocardial infarction, avoiding NSAIDs.? 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 Recommended Voltaren gel?topically only?to the left ankle every 6 hours as needed.? Patient to continue with daily range of motion exercises, supportive shoes, discussed utility of ankle arthroscopy with debridement. Goals to remove exostosis and peaking at the anterior ankle osseous impingement. Risks include but are not limited to pain, bleeding, numbness, infection, fistula, sinus tract, failure to remove exostosis, need for further surgical intervention. 04/17/2022 left ankle arthroscopy with extensive debridement, outpatient, general anesthesia. Popliteal block preoperatively. Coding Level of Care Code Acute Management Services Technician for Rola Rios Diagnoses Post-traumatic arthritis of left ankle M19.172 Impingement syndrome of left ankle M25.872 Left ankle pain M25.572
[2022-04-17] MEDS: ceFAZolin 2,000 MG in sodium chloride 0.9% (plus) 50 ML 100 MG IV (09:06)
--- NOTE | 2022-04-17 09:11 | P.OP_ITS ---
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 CPT code 10965 Implants: 4-0 nylon Specimens removed/disposition: None Pathology: None Surgeon: Chago Christine D.P.M. Headwaitress: Jayro Estimated blood loss: 5 IV fluids: None Urine output: 0 Complications: None Findings: Hemorrhagic synovitis and anterior osseous impingement left tibiotalar joint space Brief History: Patient has experienced progressive pain at the left ankle described as achy and increases with activity, patient has posttraumatic arthritis, on x-ray there is joint space narrowing anteriorly, recommended ankle arthroscopy for diagnostic and therapeutic purposes this would include debridement.? Risks include pain, bleeding, numbness, infection, neuritis, fistula, need for further surgical intervention. Procedure: Under mild sedation patient was brought to the operating room and placed on the operating table in supine position.? A timeout was performed.? Anesthesia was then administered by the anesthesia service.? Well-padded pneumatic tourniquet applied to the left thigh.? The left lower extremity was then scrubbed, prepped and draped utilizing normal aseptic technique.? Left foot and ankle were exsanguinated with an Esmarch bandage and the tourniquet inflated to 250 mmHg. Attention was directed to the left anterior ankle where the medial lateral portals were palpated just medial to the tibialis anterior tendon and lateral to the peroneus tertius at the level ankle mortise.? These were marked.? 10 cc of 1% lidocaine plain utilized to insufflate the ankle medially at the medial portal.? 11 blade was utilized to perform a small linear longitudinal incision through skin at the medial border of the left ankle followed by curved mosquito for dissection down to joint capsule.? Trocar and cannula introduced into the medial portal for visualization and able to directly visualize the tibiotalar joint space.? Under illumination lateral portal was established and a 3.5 mm shaver was introduced.? The arthroscopy was 4.0 mm with 30 degree angle.? There was extensive hemorrhagic synovitis at the lateral compartment the lateral gutter and anterior lateral ankle that was debrided under direct visualization.? Able to visualize the talar dome through range of motion was smooth and no chondral defect appreciated.? Is able to visualize anterior ankle anatomy, intracapsular ligaments and medial lateral gutter, after having debrided the lateral gutter there is significant improvement in visualization.? Ankle joint was distended during the procedure utilizing 40 mmHg pump setting with lactated Ringer's.? 2.9 mm bur utilized to remodel the distal anterior tibia and dorsal talar exostosis. After performing extensive debridement the ankle was flushed and cleared out with lactated Ringer's.? Instrumentation removed.? Medial and lateral borders were then flushed and closed utilizing 4-0 nylon.? Incisions were then dressed with Adaptic, sterile 4 x 4, Kerlix and Lance wrap, cam boot was applied and tourniquet was deflated with a prompt hyperemic response noted to the distal digits of the left foot.? Patient tolerated the procedure and anesthesia well and was transferred to the PACU with vital signs stable and vascular status intact.? He had increased dorsiflexion appreciated intraoperatively compared to preoperative status. Was able to dorsiflex to 8 degrees intraoperatively following debridement. He may be weightbearing as tolerated in the cam boot was given at home care instructions and follow-up.
[2022-04-17] MEDS: fentaNYL 50 mcg/mL INJ 2mL IVP (10:44)
--- NOTE | 2022-04-17 12:20 | ANE.PACU2 ---
Inpatient post-anesthesia follow up: Airway intact: Yes Vital signs: Temperature 97.6 F Pulse Rate 78 Respiratory Rate 14 Blood Pressure 116/71 Pulse Oximetry 93 Oxygen Delivery Me thod Room Air Oxygen Flow Rate 5 Fraction of Inspir ed Oxygen Hydration adequate: Yes Nausea and vomiting: No Pain level: 2 Mental status: Baseline
== END 2022-04-17 11:45 | disposition home or self-care (01) ==
PROVIDERS: PCP Registered Nurse; Visit Provider Podiatrist Foot & Ankle Surgery
PROC: (CPT 29898; principal; 2022-04-17 08:35)
DX: M19.172 Post-traumatic osteoarthritis, left ankle and foot (principal); J44.9 Chronic obstructive pulmonary disease, unspecified; I25.10 Atherosclerotic heart disease of native coronary artery without angina pectoris; I10 Essential (primary) hypertension; I25.2 Old myocardial infarction; E78.5 Hyperlipidemia, unspecified; Z79.82 Long term (current) use of aspirin; Z87.891 Personal history of nicotine dependence
CPT/HCPCS: 29898; J1100; J2250; J2405; J2704; J2710; J2795; J3010; J3490; J7030

== ENCOUNTER → 2022-04-30 12:59 | Outpatient (BNVA) | payer OTHER, SELFPAY | PROVIDERS: PCP Registered Nurse; Visit Provider Registered Nurse Neonatal Intensive Care | DX: Z20.822 Contact with and (suspected) exposure to COVID-19 (principal) | CPT/HCPCS: 87635 ==

== ENCOUNTER 2023-05-24 06:37 | Outpatient (CLI) | payer BC, SELFPAY ==
[2023-05-24 06:49] VITALS: BMI 31.8
--- NOTE | 2023-05-24 06:52 | NMCV_ITS ---
NM ilir perf SPECT r/s* [id number] Estrada Puente Age: 52 Gender: M : 1970 Exam Date: 05/24/2023 06:52 Ordering Phys: Luciana Ochoa Technologist: DARRELL Crump Exam Location: [facility] Indications: HYPERTENSION, ATHEROSCLEROTIC HEART DISEASE, CORONARY ANGIOPLASTY STATUS STRESS TEST Please see separate stress test report in [facility] for full findings IMAGE PROTOCOL Rest/Stress 1 Lexiscan Day Radiopharmaceutical Dose (mCi) Administration Site Administered by Rest: Tc-99m 10.9 IV DARRELL Gandara Sestamibi Stress:Tc-99m 32.7 IV DARRELL Gandara Sestamibi Rest: 24-May-2023 60 Discovery 630 Stress: 24-May-2023 30 Discovery 630 0.4mg Lexiscan. Images obtained in supine and prone position. SPECT RESULTS Technical Quality: Excellent Raw Data Analysis: Normal Image Corrections: No attenuation or motion correction applied Summed Stress Score: 1 Summed Rest Score: 2 Summed Difference Score: 1 PERFUSION FINDINGS Small area of slightly decreased aseptic was noted in the mid inferior region with some reversibility FUNCTIONAL RESULTS (calculated via Gated SPECT) Stress Image LV EF (%): 60 Stress EDV (mL):118 TID: 1.07 Stress ESV (mL):47 FUNCTIONAL FINDINGS: Segmental wall motion analysis revealing no gross wall motion abnormalities IMPRESSIONS 1. Myocardial perfusion imaging revealing a small area of slightly decreased tracer uptake in the mid inferior region with reversibility suggesting ischemia in the distribution of the right coronary artery. 2. Normal LV ejection fraction 60%. 3. LV wall motion analysis revealing no gross wall motion abnormalities. 4. The LV volume, upper limit of normal. Compared to the study from 04/11/2021 the small area of ischemia appears to be new Dr Andriy Strickland MD FAC (Electronically Signed) Final Date: 24 May 2023 16:27 S
--- NOTE | 2023-05-24 06:52 | ECG_ITS ---
[facility] Test Date: 2023-05-24 Pat Name: Estrada Puente Department: Room: Gender: Male [employer]: : 1970 Requested By: Luciana Ochoa Order Number: [id number] Danilo MD: Andriy Strickland M.D. Interpretive Statements NAME OF STUDY: LEXISCAN SESTAMIBI STRESS TEST INDICATION: Primary HTN PROCEDURE: At the baseline, the EKG revealed normal sinus rhythm with a normal ST Ts. Early repolarization changes. The baseline heart was 71 bpm with a blood pressue of 127/98 mm of Hg Lexiscan was infused over a period of 20 seconds. A total of 0.4 milligrams of Lexiscan was infused. The stress phase was continued for a total of 5 minutes. Heart rate at the end of the stress phase was 90 bpm with a blood pressure 137/91 mm of Hg. The EKG at the peak infusion revealed no significant changes. Sestamibi was injected 20 seconds after the Lexiscan infusion. Heart rate at the end of the recovery phase was 86 bpm with a blood pressure of 133/92 mm of Hg. CONCLUSION: 1. No significant EKG changes with the LexiScan infusion 2. No LexiScan induced chest pain or cardiac arrhythmia 3. Normal blood pressure and heart rate response 4. Sestamibi/sestamibi perfusion scan pending; see separate report. Electronically Signed On 05-25-2023 23:52:32 CDT by Andriy Strickland M.D. [id number]
[2023-05-24] MEDS: regadenoson 0.4 Mg/5 ml Syringe IVP (08:08)
[2023-05-24 08:22] VITALS: BP 128/72; PULSE 82
== END 2023-05-24 06:38 | disposition home or self-care (01) ==
PROVIDERS: PCP Registered Nurse; Visit Provider Registered Nurse
DX: I10 Essential (primary) hypertension (principal); I25.10 Atherosclerotic heart disease of native coronary artery without angina pectoris; Z98.61 Coronary angioplasty status; R94.39 Abnormal result of other cardiovascular function study
CPT/HCPCS: 36415; 78452; 93017; 96374; A9500; J2785

== ENCOUNTER → 2023-06-10 16:06 | Outpatient (BNVA) | payer BC, SELFPAY | PROVIDERS: PCP Registered Nurse; Visit Provider Nurse Practitioner Family | DX: I10 Essential (primary) hypertension (principal); I25.118 Atherosclerotic heart disease of native coronary artery with other forms of angina pectoris | CPT/HCPCS: 36415; 80048 ==

== ENCOUNTER 2023-06-16 10:50 | Emergency (ER) | payer BC, SELFPAY ==
[2023-06-16 10:51] VITALS: BP 165/95; PULSE 64; RESP 18; TEMP 36.7; O2SAT 92; BMI 30.6
--- NOTE | 2023-06-16 10:56 | XRR_ITS ---
PROCEDURE INFORMATION: Exam: XR Chest Exam date and time: 06/16/2023 11:10 AM Age: 52 years old Clinical indication: Pain; Angina pectoris; Additional info: Cp TECHNIQUE: Imaging protocol: Radiologic exam of the chest. Views: 1 view. Total images: 3 COMPARISON: CR XR chest 1V portable [id number] 02/28/2022 1:49 AM FINDINGS: Lungs: Unremarkable. No consolidation. Pleural spaces: Unremarkable. No pleural effusion. No pneumothorax. Heart/Mediastinum: Unremarkable. No cardiomegaly. Bones/joints: Unremarkable. XR/XR chest 1V portable [id number] IMPRESSION: No acute findings.
--- NOTE | 2023-06-16 10:56 | ECG_ITS ---
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 Measurements Intervals [place] Rate: 56 P: 37 FL: 172 QRS: 34 QRSD: 102 T: 51 QT: 405 QTc: 394 Interpretive Statements SINUS BRADYCARDIA WITH MARKED SINUS ARRHYTHMIA Compared to ECG 02/28/2022 04:05:02 Sinus rhythm no longer present Electronically Signed On 06-16-2023 15:45:49 CDT by Kirk Dillon M.D. [email or web address] systemVentus Medicalst. [email or web address] [email or web address]/store/[id number]
[2023-06-16 11:07] VITALS: BP 165/95; PULSE 63; RESP 16; O2SAT 96
--- NOTE | 2023-06-16 11:09 | CT_ITS ---
WS: [id number] CT HEAD TECHNIQUE: Noncontrast CT of the head obtained from the skullbase to the vertex. CLINICAL INFORMATION: iniguez COMPARISON: None. DLP: 1097.[address] scans at [facility] use at least one of these dose optimization techniques: automated e xposure control; mA and/or kV adjustment per patient size (includes targeted exams where dose is matc hed to clinical indication); or iterative reconstruction. FINDINGS: No evidence of intracranial hemorrhage or mass effect. Ventricular system and basal cisterns are browne nt. No extra-axial fluid collections. No evidence of mass or mass effect. Normal ramirez-white different iation. Mucosal thickening paranasal sinuses. Mastoid air cells are well aerated. Intracranial vascular calci fication. IMPRESSION: 1. No evidence of intracranial hemorrhage or mass effect. 2. No acute intracranial findings.
--- NOTE | 2023-06-16 11:09 | W.ED.CHESTPA ---
HPI - Chest Pain General: Chief Complaint: Chest Pain Stated Complaint: Chest Pain Time Seen by Provider: 06/16/23 10:55 Source: patient and EMS Mode of arrival: EMS Limitations: no limitations History of Present Illness: 52-year-old male has a history of hypertension along with coronary artery disease he states that his blood pressures been running high this morning states he started to feel like he had some tunnel vision along with shortness of breath states had some decreased vision in his left eye as well. He states he had the symptoms before when his blood pressure gets high they have since resolved he has no symptoms currently. He had a stress test done here on the that showed some slight ischemia he had had an angiogram done in [place] that I reviewed the results and Dr. Reyes last clinic visit he did not have any stents placed at that time. Associated symptoms: Reports dyspnea; Deny abdominal pain, fever(s), nausea or vomiting Review of Systems Const: Denies: fever(s) or chills Eyes: Reports: blurry vision; Denies: eye discomfort ENMT: Denies: throat pain or dental pain Card: Reports: chest pain Resp: Reports: dyspnea GI: Denies: abdominal pain, nausea, vomiting or diarrhea : Denies: dysuria Musc: Denies: neck pain or back pain Skin/Breast: Denies: rash Neuro: Denies: headache(s) PFSH ED PFSH: Medical History Chronic bronchitis HTN (hypertension) with goal to be determined Hyperlipidemia Tobacco abuse Surgical History Hx of tonsillectomy Hx of total knee replacement Stented coronary artery Family History Mother CAD (coronary artery disease) Cancer Lung disease Stroke Grandmother CAD (coronary artery disease) Diabetes Grandfather CAD (coronary artery disease) Cancer Dementia Family/Other Suicide Denies family history of Clotting disorder Chronic kidney disease (CKD) Anesthesia complication Bleeding disorder Social History Smoking and tobacco status: former smoker Quit status (tobacco): has quit using tobacco Year quit tobacco: 2020 Former quit date comment: quit 3 weeks ago Alcohol intake: former Substance/Drug Use: former Date of last use: 15 years ago Household members: spouse Number of children: 9 Current occupational status: employed Pets and animals: Yes Pets & animals: cat(s) and dog(s) Current gender identity: Male Physical Exam Const: COMMON NORMALS: no acute distress, patient oriented x3 and healthy appearing HENMT: COMMON NORMALS: normocephalic and atraumatic HEAD & SCALP: normocephalic and atraumatic Eye: COMMON NORMALS: Equal, round and reactive pupils present and EOMs intact bilaterally VISUAL NARVAEZ: No peripheral vision loss, No central vision loss, No left visual field cut, No right visual field cut, No bitemporal visual field cut and No visual field cut by quadrant PUPIL: Yes Equal, round and reactive pupils present Neck/C-Spine: COMMON NORMALS: full ROM and supple Chest: COMMONS NORMALS: normal inspection of the chest and normal palpation of entire chest wall Resp: COMMON NORMALS: normal respiratory effort, No retractions, No use of accessory muscles and clear to auscultation bilaterally AUSCULTATION: clear to auscultation bilaterally Cardio: COMMON NORMALS: regular rate, regular rhythm and No murmurs present (Cardio) RATE: regular rate RHYTHM: regular rhythm GI: COMMON NORMALS: Normal to inspection, nondistended, normoactive bowel sounds present, Soft to palpation, non-tender and no masses PALPATION: Yes Soft to palpation Extremity: COMMON NORMALS: normal to inspection and full ROM Neuro: COMMON NORMALS: patient oriented x3, moves all extremities and no focal motor deficits SPEECH: speech normal GAIT: Yes Normal gait present MOTOR EXAM: 5/5 motor strength present throughout Psych: COMMON NORMALS: mental status grossly normal, Normal thought process present and cooperative THOUGHT PROCESS: Normal thought process present Skin: COMMON NORMALS: no rashes or lesions noted and no wounds GENERAL SKIN EXAM: no rashes or lesions noted Course Vital Signs: Vital signs: Vital Signs Temperature 98.1 F 06/16/23 10:51 Pulse Rate 63 06/16/23 11:07 Respiratory Rate 16 06/16/23 11:07 Blood Pressure 165/95 06/16/23 11:07 Pulse Oximetry 96 06/16/23 11:07 Oxygen Delivery Me thod Room Air 06/16/23 10:51 MDM - Chest Pain Medical Decision Making Patient presents here with some chest pain stated tunnel vision all since is resolved could be blood pressure related he had a recent cardiac cath that was negative his troponins here are normal he is wanting go home I feel he is stable for discharge he is to follow-up with PCP and return if worsening. Medical Records I reviewed the patient's medical records. Lab Data I reviewed the patient's lab results. 06/16/23 11:05 06/16/23 11:05 Radiology Impressions Chest X-Ray 06/16/23 10:56 IMPRESSION: No acute findings. Laboratory Results WBC 7.19 10^3/uL (3.29-11.43) 06/16/23 11:05 RBC 4.73 10^6/uL (3.85-5.65) 06/16/23 11:05 Hgb 14.30 g/dL (11.27-16.99) 06/16/23 11:05 Hct 41.9 % (37-53) 06/16/23 11:05 MCV 88.6 fl (82-101) 06/16/23 11:05 MCH 30.2 pg (27-33) 06/16/23 11:05 MCHC 34.1 g/dL (30-55) 06/16/23 11:05 RDW 13.0 % (12.1-15.1) 06/16/23 11:05 Plt Count 268 10^3/cmm (157-399) 06/16/23 11:05 MPV 9.4 fL (7.4-10.4) 06/16/23 11:05 Neut % (Auto) 53.1 % 06/16/23 11:05 Lymph % (Auto) 36.7 % 06/16/23 11:05 [place] % (Auto) 6.8 % 06/16/23 11:05 Eos % (Auto) 2.2 % 06/16/23 11:05 Baso % (Auto) 0.8 % 06/16/23 11:05 Neut # (Auto) 3.81 10^3/uL (1.8-7.7) 06/16/23 11:05 Lymph # (Auto) 2.6 10^3/uL (0.8-4.8) 06/16/23 11:05 [place] # (Auto) 0.5 10^3/uL (0.2-0.9) 06/16/23 11:05 Eos # (Auto) 0.2 10^3/uL (0.0-0.8) 06/16/23 11:05 Baso # (Auto) 0.1 10^3/uL (0.0-0.1) 06/16/23 11:05 Nucleated RBC % (auto) 0 % 06/16/23 11:05 Nucleated RBCs # 0.0 /100WBC 06/16/23 11:05 D-Dimer <= 0.27 ug/mLFEU (0-0.59) 06/16/23 11:05 Sodium 140 mmol/L (136-145) 06/16/23 11:05 Potassium 4.0 mmol/L (3.5-5.1) 06/16/23 11:05 Chloride 106 mmol/L (98-107) 06/16/23 11:05 Carbon Dioxide 25 mmol/L (22-29) 06/16/23 11:05 Anion Gap 13.0 (5-19) 06/16/23 11:05 BUN 14 mg/dL (6-20) 06/16/23 11:05 Creatinine 1.0 mg/dL (0.7-1.2) 06/16/23 11:05 GFR Calculation 78.5 mL/min (90-130) L 06/16/23 11:05 Glucose 123 mg/dL (65-115) H 06/16/23 11:05 Calculated Osmolality 292 mOsm/kg (285-295) 06/16/23 11:05 Calcium 9.0 mg/dL (8.5-10.5) 06/16/23 11:05 Total Bilirubin 0.2 mg/dL (0.15-1.2) 06/16/23 11:05 AST 19 U/L (0-40) 06/16/23 11:05 ALT 40 U/L (0-41) 06/16/23 11:05 Alkaline Phosphatase 98 U/L (40-130) 06/16/23 11:05 Troponin T Baseline 16 ng/L (0-15) H 06/16/23 11:05 Troponin T 120 Minute 13.65 ng/L (0-15) 06/16/23 13:06 Total Protein 6.2 g/dL (6.6-8.7) L 06/16/23 11:05 Albumin 4.2 g/dL (3.5-5.2) 06/16/23 11:05 Globulin 2.0 g/dL (1.3-4.6) 06/16/23 11:05 EKG Data EKG 1: I personally reviewed and interpreted this EKG as follows: EKG interpretation date: 06/16/23 EKG interpretation time: 11:04 Interpretation: nsr hr [address] or t wave abnormalities qrs 108 qtc 406 Discharge Plan Discharge Patient Disposition: Home Clinical Impression: Chest pain Prescriptions: No Action lisinopril 20 mg tablet 40 mg PO BID metoprolol succinate 25 mg tablet extended release 24 hr 50 mg PO QAM terbinafine HCl 250 mg tablet 250 mg PO QAM nystatin 100,000 unit/gram powder 1 applic TOPICAL QPM Lipitor 80 mg tablet 80 mg PO QAM Rx Instructions: Must make appointment and be seen for further refills clopidogrel 75 mg tablet 75 mg PO QAM Rx Instructions: Must make appointment and be seen for further refills Adult Low Dose Aspirin 81 mg tablet,delayed release (DR/EC) 81 mg PO QAM Rx Instructions: Must make appointment and be seen for other refills Discharge Orders: Discharge ED (Routine); Ordered 06/16/23 Ordered By: Nargis Villela Referrals: Luciana Ochoa [Primary Care Provider] - 1-3 days Discharge Diet: Advance as tolerated Discharge Activity: Resume usual activity Patient Instructions: Chest Pain (ED) Coding Level of Care Code ED Customer Care Assistant for Rola Rios
[2023-06-16 11:15] LABS: Basophils # 0.1 10^3/uL (0.0-0.1); Basophils % 0.8 %; Eosinophils # 0.2 10^3/uL (0.0-0.8); Eosinophils % 2.2 %; Hematocrit 41.9 % (37-53); Lymphocytes # 2.6 10^3/uL (0.8-4.8); Lymphocytes % 36.7 %; Mean Corpuscular HGB Conc 34.1 g/dL (30-55); Mean Corpuscular Hemoglobin 30.2 pg (27-33); Mean Corpuscular Volume 88.6 fl (82-101); Mean Platelet Volume 9.4 fL (7.4-10.4); Monocytes # 0.5 10^3/uL (0.2-0.9); Monocytes % 6.8 %; Neutrophils # 3.81 10^3/uL (1.8-7.7); Neutrophils % 53.1 %; Nucleated Red Blood Cells % 0 %; Platelet Count 268 10^3/cmm (157-399); Red Blood Count 4.73 10^6/uL (3.85-5.65); White Blood Count 7.19 10^3/uL (3.29-11.43)
--- NOTE | 2023-06-16 11:22 | PC.PHAR ---
pt states he takes care of his own medications-pt no longer has an albuterol inhaler ext shows last filled 10/09/22-notes are made in the pharmacy comments
[2023-06-16 11:29] LABS: D Dimer <= 0.27 ug/mLFEU (0-0.59)
[2023-06-16] MEDS: hyDRALAzine 20 mg/mL INJ 1 mL 10 MG IVP (11:29)
[2023-06-16 11:35] LABS: Alanine Aminotransferase 40 U/L (0-41); Albumin Level 4.2 g/dL (3.5-5.2); Alkaline Phosphatase 98 U/L (40-130); Aspartate Amino Transferase 19 U/L (0-40); Blood Urea Nitrogen 14 mg/dL (6-20); Carbon Dioxide 25 mmol/L (22-29); Chloride 106 mmol/L (98-107); Glomerular Filtration Rate 78.5 mL/min (90-130); Glucose 123 mg/dL (65-115); Osmolality Calculated 292 mOsm/kg (285-295); Sodium 140 mmol/L (136-145); Total Bilirubin 0.2 mg/dL (0.15-1.2); Total Protein 6.2 g/dL (6.6-8.7)
[2023-06-16 11:46] LABS: Troponin(5th) Baseline 16 ng/L (0-15)
--- NOTE | 2023-06-16 12:56 | ECG_ITS ---
[facility] Test Date: 2023-06-16 Pat Name: Estrada Puente Department: Room: Gender: Male [employer]: : 1970 Requested By: Nargis Villela Order Number: [id number] Danilo MD: Kirk Dillon M.D. Measurements Intervals [place] Rate: 67 P: 36 NE: 164 QRS: 42 QRSD: 106 T: 53 QT: 403 QTc: 426 Interpretive Statements SINUS RHYTHM EARLY REPOLARIZATION [ST ELEVATION WITH NORMALLY INFLECTED T-WAVE] Compared to ECG 06/16/2023 11:01:23 Early repolarization now present Sinus bradycardia no longer present Sinus arrhythmia no longer present Electronically Signed On 06-16-2023 15:47:50 CDT by Kirk Dillon M.D. [email or web address] [email or web address] [email or web address]/store/[id number]
[2023-06-16 13:53] LABS: Troponin 5 2HR 13.65 ng/L (0-15); Troponin 5 2HR Delta -2.35 ABS# (0-10)
--- NOTE | 2023-06-16 16:56 | ECG_ITS ---
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 Measurements Intervals [place] Rate: 63 P: 29 [place]: 168 QRS: 29 QRSD: 108 T: 50 QT: 400 QTc: 409 Interpretive Statements SINUS RHYTHM Compared to ECG 06/16/2023 11:01:23 Sinus bradycardia no longer present Sinus arrhythmia no longer present Electronically Signed On 06-16-2023 15:47:31 CDT by Kirk Dillon M.D. [email or web address] [email or web address] township district memorial hospitalOkoaafrica Tours/store/NU/[id number] f
== END 2023-06-16 14:14 | disposition home or self-care (01) ==
PROVIDERS: Emergency Provider Emergency Medicine; PCP Registered Nurse
DX: R07.9 Chest pain, unspecified (principal); Z79.82 Long term (current) use of aspirin; Z79.02 Long term (current) use of antithrombotics/antiplatelets; Z87.891 Personal history of nicotine dependence; I10 Essential (primary) hypertension; E78.5 Hyperlipidemia, unspecified
CPT/HCPCS: 36415; 70450; 71045; 80053; 84484; 85025; 85378; 93005; 96374; 99285; J0360

== ENCOUNTER → 2023-07-05 10:18 | Outpatient (BNVA) | payer BC, SELFPAY | PROVIDERS: PCP Registered Nurse; Visit Provider Podiatrist Foot & Ankle Surgery | DX: B35.3 Tinea pedis; M25.872 Other specified joint disorders, left ankle and foot; M72.2 Plantar fascial fibromatosis | CPT/HCPCS: 73630 ==

== ENCOUNTER → 2024-09-18 14:15 | Outpatient (BNVA) | payer BC, SELFPAY | PROVIDERS: PCP Registered Nurse; Visit Provider Podiatrist Foot & Ankle Surgery | DX: M25.572 Pain in left ankle and joints of left foot (principal); M25.872 Other specified joint disorders, left ankle and foot | CPT/HCPCS: 73610 ==

== ENCOUNTER 2024-11-28 09:24 | Outpatient (CLI) | payer BC, SELFPAY ==
[2024-11-28 09:32] VITALS: BMI 32.0
--- NOTE | 2024-11-28 09:34 | ECG_ITS ---
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 The perfusion scan will be documented separately. DATA: Baseline heart rate was 88 beats per minute. Baseline blood pressure was 163/80 millimeters of mercury. Target heart rate was 166. Maximum heart rate achieved was 151. which was 90 % of the predicted target heart rate. Maximum blood pressure was 189/95 millimeters of mercury. The reason for ending the test was completion of the protocol. The patient did not experience any symptoms. ELECTROCARDIOGRAM: BASELINE: Sinus rhythm. Normal axis. Otherwise, no ST-T changes suggestive of ischemia noted. No arrhythmia noted. EXERCISE: After Lexiscan injection, no ST-T changes suggestive of ischemic noted. Frequent PVCs noted CONCLUSION: Please note due to baseline abnormality of the EKG specificity and sensitivity of the EKG portion of LexiScan MIBI stress test will be low 1. EKG not suggestive of ischemia 2. Lexiscan injection unremarkable. 3. Perfusion scan will be documented separately. Electronically Signed On 12-24-2024 18:43:08 CDT by ALICIA ZAVALA [id number] [id number]
[2024-11-28 10:20] VITALS: BP 154/88; PULSE 103
== END 2024-11-28 09:25 | disposition home or self-care (01) ==
PROVIDERS: PCP Registered Nurse; Visit Provider Registered Nurse
DX: R07.9 Chest pain, unspecified (principal)
CPT/HCPCS: 93017